=== PATIENT | female | born 1970 | race Caucasian/White ===

== ENCOUNTER 2016-07-07 22:00 | Inpatient (IN) | payer BC, OTHER ==
--- NOTE | ~2016-07-07 | HP ---
History And Physical [place] [id number] [facility] [place]. [address] NAME: SUKHJINDER GONSALVES : 66 STATUS : ADM IN [facility]#: [id number] AGE: 45 ADM/REG DATE : 07/08/16 MR#: [id number] REPORT SERV DATE: 07/08/16 DICTATED BY: EDWARD DIEZ DATE: 07/08/16 REPORT STATUS : Draft TRANSCRIBED BY: MODL DATE: 07/08/16 DATE OF ADMISSION: 07/08/2016 REASON FOR ADMISSION: Complicated diverticulitis. HISTORY: A 45-year-old, relatively healthy, white female, admitted through the ED in the early hours of this morning with her 3rd episode of acute sigmoid diverticulitis in as many months. The patient initially had trouble in April of this year and was treated as an outpatient with oral antibiotics. A CT scan has shown a small focus of sigmoid diverticulitis. She completed outpatient therapy and then had recurrence within a month to where she was admitted for several days to this institution in mid May. At this point, she had worsening imaging characteristics with more extensive diverticulitis of her longer section of the sigmoid colon. She was successfully treated with IV antibiotics and then finished her therapy as outpatient. The patient was doing relatively well until she had acute worsening of her lower abdominal pain yesterday and now CT scan has shown worsening of her sigmoid inflammation with evidence of microperforation with air in the mesentery and a little bit over the liver margin. PAST MEDICAL HISTORY: Include breast hypertrophy and history of syncope. ALLERGIES: ADHESIVE TAPE. SOCIAL HISTORY: She is single and mother. She is a nonsmoker and nondrinker. 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 She is a 4, para 4, abortus 0. PAST SURGICAL HISTORY: She had bilateral breast reduction in fall of 2015. She had a vaginal hysterectomy and bladder sling sometime in the past and then a laparoscopic cholecystectomy in 2009. PHYSICAL EXAMINATION: GENERAL: The patient is alert and conversant, but she is obviously uncomfortable. CARDIOVASCULAR: Regular rate and rhythm. NECK: Supple without adenopathy. HEENT: No scleral icterus. CHEST: Clear bilaterally. BREASTS: Not examined. ABDOMEN: Shows no distention. Decreased bowel sounds. She has generalized tenderness with guarding. She has no hepatosplenomegaly. She appears to have well healed laparoscopic incisions. There may be a small umbilical defect. LABORATORY DATA: WBC 20.3 thousand without left shift. Her H and H is 14.1/41, platelets are 186,000. Potassium is 4.0, BUN 24, creatinine 0.99, glucose 131, bilirubin is 1.6 and it should be noted a month ago, it was 2.9. Liver functions including transaminases within normal limits. Lipase 68. CT imaging impression is that of diverticulosis with sigmoid diverticulitis, pneumoperitoneum likely secondary to perforated sigmoid diverticulitis. History And Physical [address] [place]. [address] NAME: SUKHJINDER GONSALVES : 66 STATUS : ADM IN [facility]#: [id number] AGE: 45 ADM/REG DATE : 07/08/16 MR#: [id number] REPORT SERV DATE: 07/08/16 DICTATED BY: EDWARD DIEZ DATE: 07/08/16 REPORT STATUS : Draft TRANSCRIBED BY: MARK DATE: 07/08/16 IMPRESSION: Complicated acute and recurrent sigmoid diverticulitis with microperforation and evidence of pneumoperitoneum. PLAN: The patient is certainly in a somewhat concerning situation in terms of whether she would need continued medical management versus surgical management. At this point, given her adequate vital signs, I will give her an additional 24 hours of IV fluids, IV antibiotics, and bowel rest to see if she has any effect. If she has no improvement in the next 18-24 hours or worsens, she will need diagnostic laparoscopy with peritoneal lavage and washouts and/or elective sigmoid resection plus-minus colostomy. I have taken great pains to explain to the patient her somewhat marginal situation in terms of medical versus surgical management, but given her age and health, I think it is not unreasonable to give her a therapeutic trial of antibiotics and see if we can avoid urgent or aggressive surgical intervention. She and her family understand the reason for this and we will proceed in that fashion. RAI/MARK Edward Diez M.D. / [id number] CC: Laurita Frederick M.D.
--- NOTE | ~2016-07-07 | DS ---
Discharge Summary [facility] [address] [place]. [address] NAME: SUKHJINDER GONSALVES : 66 STATUS : DIS IN PAT#: [id number] AGE: 45 ADM/REG DATE : 07/08/16 MR#: [id number] REPORT SERV DATE: 07/26/16 DICTATED BY: EDWARD DIEZ DATE: 07/25/16 REPORT STATUS : Draft TRANSCRIBED BY: MARK DATE: 07/25/16 Data Collection from hospitalization DISCHARGE DIAGNOSES: 1. Perforated sigmoid diverticulitis. 2. Gastroesophageal reflux disease. 3. History of breast hypertrophy. 4. History of syncope. CONSULTATIONS: None. PROCEDURES PERFORMED: 1. Diagnostic laparoscopy with laparoscopic peritoneal lavage on 07/09/2016. 2. CT scan of the abdomen and pelvis without contrast on 07/08/2016. MEDICATIONS: Biotin capsules 5 mg daily, Zyrtec 10 mg at bedtime, vitamin B12 1000 mcg daily, papaya enzyme as instructed, [place] 5/325 one tablet every four hours as needed for pain, Levaquin 750 mg daily, Mobic 15 mg at bedtime, Flagyl 500 mg every eight hours, multivitamins one tablet daily, and Zofran 4 mg every six hours as needed. CONDITION AT DISCHARGE: Stable. DISPOSITION: The patient was discharged home on a soft diet with activities as instructed. She would follow up with me on 07/25/2016. HOSPITAL COURSE: This is a 45-year-old female who presented to the emergency department in the peanut shaker hours of the morning of admission with her third episode of acute sigmoid diverticulitis in as many months. She initially had trouble in April of this year and was treated as an outpatient with oral antibiotics. A CT scan had shown a small focus of sigmoid diverticulitis. She completed outpatient therapy and then had recurrence within a month and was admitted for several days here in mid May. At this point, she developed worsening imaging characteristics with more extensive diverticulitis of a longer section of the sigmoid colon. She was successfully treated with IV antibiotics and then finished her therapy as an outpatient. She was doing relatively well until she developed acute worsening of her lower abdominal pain on the day prior to this admission. She presented and a CT scan had shown worsening of her sigmoid inflammation with evidence of microperforation with air in the mesentery and a slifer of air over the right liver margin. She was felt to have complicated acute and recurrent sigmoid diverticulitis with microperforation and evidence of pneumoperitoneum. Treatment options were discussed and it was elected to proceed with surgical intervention. She was admitted to the hospital at this time for further evaluation and treatment. Upon admission, plans are being made to proceed with surgical intervention. The following day, she was taken to the operating room where she underwent the above-mentioned procedure. She tolerated this well, and there were no complications. On postop day #1, white count had decreased to 21.2. Total bilirubin was 1.4. Urine output was adequate. She had moderate NG tube output. Her lungs were clear. Her incisions looked okay. She was allowed to have ice chips and sips of water. Antibiotics were continued. On 07/11/2016, her temperatures Discharge Summary [place] [id number] [facility] [place]. [address] NAME: SUKHJINDER GONSALVES : 66 STATUS : DIS IN PAT#: [id number] AGE: 45 ADM/REG DATE : 07/08/16 MR#: [id number] REPORT SERV DATE: 07/26/16 DICTATED BY: EDWARD DIEZ DATE: 07/25/16 REPORT STATUS : Draft TRANSCRIBED BY: MARK DATE: 07/25/16 and pulse were within normal limits. She did have some increased pain the previous evening, but this was improving. She was less flushed. Her abdomen was less distended and tender. Her incisions looked okay. White blood cell count was 13.2. Total bilirubin and liver function tests were within normal limits. On 07/12/2016, her white count had decreased to 12. She did have some retching. Liver function tests were within normal limits. Her incisions looked okay. IV antibiotics were continued. The next day, she developed some frequent loose stools. She had no further nausea or vomiting. KUB had revealed ileus versus free air. C and S of the peritoneal fluid showed no growth. On 07/14/2016, she had some nausea and loose stools. There was no change in her abdominal pain. Over the next couple of days, discharge planning was performed. She was up sitting in a chair. She continued to do well. Antibiotics were continued. On 07/16/2016, she remained afebrile. She was tolerating full liquids. She still had some loose stools, but less voluminous. White count was 12.5. Her diet was advanced. Discharge instructions were given. Due to her improved and stable condition, she was discharged home with the above-stated instructions. Information collected by: Jennifer Patel I submit the above information as my discharge summary. TANO/MARK Edward Diez M.D. / [id number] CC: Laurita Frederick M.D.
--- NOTE | ~2016-07-07 | OP ---
Record Of Operation [facility] [address] [place]. [address] NAME: SUKHJINDER GONSALVES : 66 STATUS : ADM IN PAT#: [id number] AGE: 45 ADM/REG DATE : 07/08/16 MR#: [id number] REPORT SERV DATE: 07/10/16 DICTATED BY: EDWARD DIEZ DATE: 07/10/16 REPORT STATUS : Draft TRANSCRIBED BY: MODL DATE: 07/10/16 DATE OF PROCEDURE: 07/09/2016 PREOPERATIVE DIAGNOSIS: Perforated sigmoid diverticulitis with purulent peritonitis (Hinchey grade 3). POSTOPERATIVE DIAGNOSIS: Perforated sigmoid diverticulitis with purulent peritonitis (Hinchey grade 3). PROCEDURE: Diagnostic laparoscopy with laparoscopic peritoneal lavage. DESCRIPTION OF OPERATIVE PROCEDURE: The patient was brought to the operating suite, placed in supine position, underwent satisfactory general endotracheal anesthesia without incident. The skin of the abdomen was scrubbed, prepped, and draped in usual sterile fashion. 0.5% Marcaine with epinephrine was utilized as supplemental local anesthesia at all intended trocar sites. Initially, an infraumbilical incision was performed dissecting through the skin and subcutaneous tissue of the umbilical fascia. This was grasped with a Cheo clamp and elevated and a disposable Veress insufflation needle was inserted through the umbilical fascia into the peritoneal cavity. Intraperitoneal tip location ascertained using the saline hanging drop method. CO2 was insufflated for pressures of 15 mmHg throughout the case. After adequate insufflation pressure was achieved, Veress needle was removed, disposable bladed shielded 11 mm trocar placed through the umbilical fascia following which a rigid forward-viewing 10 mm laparoscope was inserted. Visualization of the intraabdominal parietes revealed no evidence of injury from initial insufflation or puncture. Evaluation of intraperitoneal cavity revealed a purulent peritonitis from the perforated sigmoid diverticulitis consistent with a Hinchey grade 3 condition. Two additional trocars were placed, a 5 mm one in the infraumbilical midline detention between the pubic bone and then a 10/11 mm trocar through the suprapubic midline. They were placed under direct visualization. Copious irrigation with normal saline (15 L) was performed until clear of all the purulent material freeing up the small bowel and loops of small bowel to make sure there are no interloop abscesses. Evaluation of the sigmoid colon revealed sigmoid diverticulitis. I could not see any feculent discharge or free air. After copious irrigation, and evaluation, aspiration of all of the irrigating fluid was performed and then laparoscopy was terminated. Trocars removed. CO2 was allowed to egress from the peritoneal cavity. The umbilicus was closed with [id number] suture of 0 Vicryl, subcutaneous tissue closed at all sites with interrupted 4-0 Vicryl, running subcuticular stitch of 4-0 Vicryl for the skin. Dermabond skin adhesive placed. The patient tolerated the procedure well and was returned to PACU in stable condition. At Record Of Operation [address] [address] NAME: SUKHJINDER GONSALVES : 66 STATUS : ADM IN [facility]#: [id number] AGE: 45 ADM/REG DATE : 07/08/16 MR#: [id number] REPORT SERV DATE: 07/10/16 DICTATED BY: EDWARD DIEZ DATE: 07/10/16 REPORT STATUS : Draft TRANSCRIBED BY: MARK DATE: 07/10/16 termination of procedure, sponge, needle, lap, and instrument counts were correct x3. RAI/MARK Edward Diez M.D. / [id number] CC: Laurita Frederick M.D.
[~2016-07-07 22:00] MED LIST: ALEVE220 MG PO; AT25 PO; CLARIT10 PO; FLAG500TAB PO; HARD NAILS PO; K500 PO; LEVAQUIN750 MG PO; MOBIC15 MG PO; MULTIVIT/MIN PO; NORCO1 TA1 PO; OTC VITAMIN B-12 PO; PAPAYA ENZY1 PO; ST. JOHN'S300 MG PO; ULTRAM50 PO; ZYRTEC ALLGY10 MG PO; [UNRECOGNIZED DRUG - OTHER] PO
[2016-07-07 23:55] LABS: ASCORBIC ACID (UR NOT ORDER) NEG (NEG); BILIRUBIN, URINE NEGATIVE (NEG); ER URINALYSIS TAT 0 Hrs 00 Mins; KETONE, URINE NEGATIVE (NEG); LEUKOCYTE ESTERASE(NOT OR NEG (NEG); NITRITE (URINE) NEG (NEG); WBC (NOT ORDERED) (RFLEX) 1 (0-5)
[2016-07-07 23:57] LABS: BASOPHILS 0.1 %; BASOPHILS ABSOLUTE 0.02 10/3/uL (0.0-0.16); EOSINOPHILS 0.1 %; EOSINOPHILS ABSOLUTE 0.02 10/3/uL (0.0-0.53); ER CBC TAT 0 Hrs 13 Mins; HEMOGLOBIN 14.1 g/dL (12.0-16.0); IMMATURE GRANULOCYTES 0.4 %; IMMATURE GRANULOCYTES ABSOLUTE 0.08 10/3/uL (0.0-0.11); LYMPHOCYTES ABSOLUTE 1.43 10/3/uL (0.67-4.30); MANUAL DIFF NO %; MEAN CORPUS HGB CONC 34.4 g/dL (32.0-36.0); MEAN CORPUSCULAR HEMOGLOB 29.6 pg (26.0-34.0); MEAN CORPUSCULAR VOLUME 86.1 fL (80-100); MEAN PLATELET VOLUME 9.8 fL (9.2-13.0); MONOCYTES 7.6 %; MONOCYTES ABSOLUTE 1.55 10/3/uL (0.21-1.20); NEUTROPHILS 84.8 %; NEUTROPHILS ABSOLUTE 17.24 10/3/uL (2.02-8.40); PLATELET COUNT 186 10/3/uL (150-400); RBC DISTRIBUTION WIDTH 13.3 % (12.0-16.0); RED CELL COUNT 4.76 10/6/uL (4.0-5.6); WHITE BLOOD CELLS 20.3 10/3/uL (4.5-10.5)
[2016-07-08 00:14] LABS: CALCIUM, SERUM 8.5 MG/DL (8.5-10.4); CHLORIDE, SERUM 101 MMOL/L (96-112); CO2 (CARBON DIOXIDE) 27 MMOL/L (24-34); CREATININE 0.99 MG/DL (0.55-1.02); GFR AFRICAN AMERICAN 79 ML/MIN (>=60); GFR NON AFRICAN AMERICAN 68 ML/MIN (>=60); SGOT(AST) 24 U/L (5-40); SGPT(ALT) 46 U/L (5-65); SODIUM, SERUM 137 MMOL/L (135-148); TOTAL PROTEIN 7.6 G/DL (6.0-8.5)
[2016-07-08 00:15] LABS: A/G RATIO 1.2 (0.7-1.9); ALBUMIN 4.1 G/DL (3.5-5.0); BUN (BLOOD UREA NITROGEN) 24 MG/DL (6-23); GLOBULIN 3.5 G/DL (2.5-4.1); GLUCOSE, SERUM 131 MG/DL (60-99); TOTAL BILIRUBIN 1.6 MG/DL (0-1.2)
[2016-07-08 00:16] LABS: ALKALINE PHOSPHATASE 67 U/L (45-117)
[2016-07-08] MEDS ORDERED: PAPAYA ENZY1 PO (03:51)
[2016-07-08] MEDS ORDERED: MULTIVITAMI1 PO (03:53)
[2016-07-08] MEDS ORDERED: MOBIC15 MG PO (03:53)
[2016-07-08] MEDS ORDERED: ZYRTEC ALLGY10 MG PO (03:54)
[2016-07-08] MEDS ORDERED: CYANO1000T PO (03:55)
[2016-07-08] MEDS ORDERED: NORCO1 TA1 PO (03:55)
[2016-07-08] MEDS ORDERED: BIOTIN5 MG PO (03:57)
[2016-07-09 06:38] LABS: BASOPHILS 0.2 %; BASOPHILS ABSOLUTE 0.04 10/3/uL (0.0-0.16); EOSINOPHILS 0.1 %; EOSINOPHILS ABSOLUTE 0.03 10/3/uL (0.0-0.53); HEMOGLOBIN 12.6 g/dL (12.0-16.0); IMMATURE GRANULOCYTES 0.4 %; IMMATURE GRANULOCYTES ABSOLUTE 0.08 10/3/uL (0.0-0.11); LYMPHOCYTES 9.6 %; LYMPHOCYTES ABSOLUTE 2.07 10/3/uL (0.67-4.30); MEAN CORPUS HGB CONC 34.1 g/dL (32.0-36.0); MEAN CORPUSCULAR HEMOGLOB 30.1 pg (26.0-34.0); MEAN CORPUSCULAR VOLUME 88.5 fL (80-100); MEAN PLATELET VOLUME 9.5 fL (9.2-13.0); MONOCYTES 8.8 %; NEUTROPHILS 80.9 %; NEUTROPHILS ABSOLUTE 17.52 10/3/uL (2.02-8.40); PLATELET COUNT 180 10/3/uL (150-400); RBC DISTRIBUTION WIDTH 13.9 % (12.0-16.0); RED CELL COUNT 4.18 10/6/uL (4.0-5.6); WHITE BLOOD CELLS 21.6 10/3/uL (4.5-10.5)
[2016-07-09 06:41] LABS: MANUAL DIFF NO %
[2016-07-09 06:50] LABS: ALKALINE PHOSPHATASE 66 U/L (45-117); CALCIUM, SERUM 8.3 MG/DL (8.5-10.4); CHLORIDE, SERUM 101 MMOL/L (96-112); CO2 (CARBON DIOXIDE) 27 MMOL/L (24-34); CREATININE 0.84 MG/DL (0.55-1.02); GFR AFRICAN AMERICAN 96 ML/MIN (>=60); GFR NON AFRICAN AMERICAN 83 ML/MIN (>=60); POTASSIUM, SERUM 3.8 MMOL/L (3.5-5.3); SGOT(AST) 13 U/L (5-40); SGPT(ALT) 25 U/L (5-65); SODIUM, SERUM 138 MMOL/L (135-148); TOTAL PROTEIN 7.1 G/DL (6.0-8.5)
[2016-07-09 06:52] LABS: A/G RATIO 0.8 (0.7-1.9); ALBUMIN 3.2 G/DL (3.5-5.0); BUN (BLOOD UREA NITROGEN) 11 MG/DL (6-23); GLOBULIN 3.9 G/DL (2.5-4.1); GLUCOSE, SERUM 90 MG/DL (60-99); TOTAL BILIRUBIN 4.3 MG/DL (0-1.2)
[2016-07-10 07:00] LABS: BASOPHILS 0.1 %; BASOPHILS ABSOLUTE 0.02 10/3/uL (0.0-0.16); EOSINOPHILS 0 %; HEMATOCRIT 33.7 % (36.0-48.0); HEMOGLOBIN 11.5 g/dL (12.0-16.0); IMMATURE GRANULOCYTES 0.3 %; IMMATURE GRANULOCYTES ABSOLUTE 0.07 10/3/uL (0.0-0.11); LYMPHOCYTES 4.7 %; MEAN CORPUS HGB CONC 34.1 g/dL (32.0-36.0); MEAN CORPUSCULAR HEMOGLOB 29.4 pg (26.0-34.0); MEAN CORPUSCULAR VOLUME 86.2 fL (80-100); MEAN PLATELET VOLUME 9.4 fL (9.2-13.0); MONOCYTES 4.8 %; MONOCYTES ABSOLUTE 1.01 10/3/uL (0.21-1.20); NEUTROPHILS 90.1 %; NEUTROPHILS ABSOLUTE 19.11 10/3/uL (2.02-8.40); PLATELET COUNT 201 10/3/uL (150-400); RBC DISTRIBUTION WIDTH 13.7 % (12.0-16.0); RED CELL COUNT 3.91 10/6/uL (4.0-5.6); WHITE BLOOD CELLS 21.2 10/3/uL (4.5-10.5)
[2016-07-10 07:01] LABS: MANUAL DIFF NO %
[2016-07-10 07:16] LABS: A/G RATIO 0.6 (0.7-1.9); ALBUMIN 2.6 G/DL (3.5-5.0); ALKALINE PHOSPHATASE 71 U/L (45-117); BUN (BLOOD UREA NITROGEN) 10 MG/DL (6-23); CALCIUM, SERUM 7.9 MG/DL (8.5-10.4); CHLORIDE, SERUM 105 MMOL/L (96-112); CO2 (CARBON DIOXIDE) 28 MMOL/L (24-34); CREATININE 0.75 MG/DL (0.55-1.02); GFR AFRICAN AMERICAN 110 ML/MIN (>=60); GFR NON AFRICAN AMERICAN 95 ML/MIN (>=60); GLOBULIN 4.2 G/DL (2.5-4.1); GLUCOSE, SERUM 183 MG/DL (60-99); POTASSIUM, SERUM 3.9 MMOL/L (3.5-5.3); SGOT(AST) 7 U/L (5-40); SGPT(ALT) 20 U/L (5-65); SODIUM, SERUM 140 MMOL/L (135-148); TOTAL BILIRUBIN 1.4 MG/DL (0-1.2); TOTAL PROTEIN 6.8 G/DL (6.0-8.5)
[2016-07-11 04:15] LABS: BASOPHILS 0.2 %; BASOPHILS ABSOLUTE 0.02 10/3/uL (0.0-0.16); EOSINOPHILS 0.2 %; EOSINOPHILS ABSOLUTE 0.03 10/3/uL (0.0-0.53); HEMATOCRIT 32.1 % (36.0-48.0); HEMOGLOBIN 10.7 g/dL (12.0-16.0); IMMATURE GRANULOCYTES 0.5 %; IMMATURE GRANULOCYTES ABSOLUTE 0.06 10/3/uL (0.0-0.11); LYMPHOCYTES 17.6 %; LYMPHOCYTES ABSOLUTE 2.32 10/3/uL (0.67-4.30); MANUAL DIFF NO %; MEAN CORPUS HGB CONC 33.3 g/dL (32.0-36.0); MEAN CORPUSCULAR HEMOGLOB 29.7 pg (26.0-34.0); MEAN CORPUSCULAR VOLUME 89.2 fL (80-100); MEAN PLATELET VOLUME 9.3 fL (9.2-13.0); MONOCYTES 8.4 %; NEUTROPHILS 73.1 %; NEUTROPHILS ABSOLUTE 9.63 10/3/uL (2.02-8.40); PLATELET COUNT 222 10/3/uL (150-400); RBC DISTRIBUTION WIDTH 13.9 % (12.0-16.0); WHITE BLOOD CELLS 13.2 10/3/uL (4.5-10.5)
[2016-07-11 04:33] LABS: A/G RATIO 0.7 (0.7-1.9); ALBUMIN 2.7 G/DL (3.5-5.0); CALCIUM, SERUM 7.8 MG/DL (8.5-10.4); CHLORIDE, SERUM 107 MMOL/L (96-112); CO2 (CARBON DIOXIDE) 31 MMOL/L (24-34); CREATININE 0.81 MG/DL (0.55-1.02); GFR AFRICAN AMERICAN 100 ML/MIN (>=60); GFR NON AFRICAN AMERICAN 86 ML/MIN (>=60); GLOBULIN 3.9 G/DL (2.5-4.1); POTASSIUM, SERUM 3.6 MMOL/L (3.5-5.3); SGOT(AST) 6 U/L (5-40); SGPT(ALT) 14 U/L (5-65); SODIUM, SERUM 143 MMOL/L (135-148); TOTAL PROTEIN 6.6 G/DL (6.0-8.5)
[2016-07-11 04:49] LABS: ALKALINE PHOSPHATASE 59 U/L (45-117); BUN (BLOOD UREA NITROGEN) 14 MG/DL (6-23); GLUCOSE, SERUM 114 MG/DL (60-99); TOTAL BILIRUBIN 0.7 MG/DL (0-1.2)
[2016-07-12 06:55] LABS: BASOPHILS 0.3 %; BASOPHILS ABSOLUTE 0.03 10/3/uL (0.0-0.16); EOSINOPHILS 0.8 %; HEMATOCRIT 36.4 % (36.0-48.0); HEMOGLOBIN 12.4 g/dL (12.0-16.0); IMMATURE GRANULOCYTES 0.8 %; IMMATURE GRANULOCYTES ABSOLUTE 0.09 10/3/uL (0.0-0.11); LYMPHOCYTES 16.2 %; LYMPHOCYTES ABSOLUTE 1.94 10/3/uL (0.67-4.30); MEAN CORPUS HGB CONC 34.1 g/dL (32.0-36.0); MEAN CORPUSCULAR HEMOGLOB 29.8 pg (26.0-34.0); MEAN CORPUSCULAR VOLUME 87.5 fL (80-100); MEAN PLATELET VOLUME 8.4 fL (9.2-13.0); MONOCYTES 14.8 %; MONOCYTES ABSOLUTE 1.77 10/3/uL (0.21-1.20); NEUTROPHILS 67.1 %; NEUTROPHILS ABSOLUTE 8.03 10/3/uL (2.02-8.40); PLATELET COUNT 239 10/3/uL (150-400); RBC DISTRIBUTION WIDTH 13.6 % (12.0-16.0); RED CELL COUNT 4.16 10/6/uL (4.0-5.6)
[2016-07-12 06:56] LABS: MANUAL DIFF NO %
[2016-07-12 07:20] LABS: A/G RATIO 0.7 (0.7-1.9); ALBUMIN 2.7 G/DL (3.5-5.0); ALKALINE PHOSPHATASE 88 U/L (45-117); BUN (BLOOD UREA NITROGEN) 8 MG/DL (6-23); CALCIUM, SERUM 7.7 MG/DL (8.5-10.4); CHLORIDE, SERUM 103 MMOL/L (96-112); CO2 (CARBON DIOXIDE) 28 MMOL/L (24-34); CREATININE 0.77 MG/DL (0.55-1.02); GFR AFRICAN AMERICAN 107 ML/MIN (>=60); GFR NON AFRICAN AMERICAN 92 ML/MIN (>=60); GLOBULIN 4.1 G/DL (2.5-4.1); GLUCOSE, SERUM 126 MG/DL (60-99); POTASSIUM, SERUM 3.6 MMOL/L (3.5-5.3); SGOT(AST) 28 U/L (5-40); SGPT(ALT) 31 U/L (5-65); SODIUM, SERUM 140 MMOL/L (135-148); TOTAL BILIRUBIN 1.4 MG/DL (0-1.2); TOTAL PROTEIN 6.8 G/DL (6.0-8.5)
[2016-07-13 07:05] LABS: BASOPHILS 0.3 %; BASOPHILS ABSOLUTE 0.05 10/3/uL (0.0-0.16); EOSINOPHILS 0.5 %; EOSINOPHILS ABSOLUTE 0.08 10/3/uL (0.0-0.53); HEMATOCRIT 36.5 % (36.0-48.0); HEMOGLOBIN 12.4 g/dL (12.0-16.0); IMMATURE GRANULOCYTES 1.2 %; IMMATURE GRANULOCYTES ABSOLUTE 0.18 10/3/uL (0.0-0.11); LYMPHOCYTES 14.4 %; LYMPHOCYTES ABSOLUTE 2.14 10/3/uL (0.67-4.30); MEAN CORPUSCULAR HEMOGLOB 28.9 pg (26.0-34.0); MEAN CORPUSCULAR VOLUME 85.1 fL (80-100); MONOCYTES 12.3 %; MONOCYTES ABSOLUTE 1.83 10/3/uL (0.21-1.20); NEUTROPHILS 71.3 %; NEUTROPHILS ABSOLUTE 10.63 10/3/uL (2.02-8.40); PLATELET COUNT 284 10/3/uL (150-400); RBC DISTRIBUTION WIDTH 13.7 % (12.0-16.0); RED CELL COUNT 4.29 10/6/uL (4.0-5.6); WHITE BLOOD CELLS 14.9 10/3/uL (4.5-10.5)
[2016-07-13 07:06] LABS: MANUAL DIFF NO %
[2016-07-13 07:17] LABS: BUN (BLOOD UREA NITROGEN) 6 MG/DL (6-23); CALCIUM, SERUM 8.1 MG/DL (8.5-10.4); CHLORIDE, SERUM 104 MMOL/L (96-112); CO2 (CARBON DIOXIDE) 29 MMOL/L (24-34); CREATININE 0.81 MG/DL (0.55-1.02); GFR AFRICAN AMERICAN 100 ML/MIN (>=60); GFR NON AFRICAN AMERICAN 86 ML/MIN (>=60); GLUCOSE, SERUM 131 MG/DL (60-99); POTASSIUM, SERUM 3.3 MMOL/L (3.5-5.3); SODIUM, SERUM 142 MMOL/L (135-148)
[2016-07-14 06:15] LABS: BASOPHILS 0.3 %; BASOPHILS ABSOLUTE 0.04 10/3/uL (0.0-0.16); EOSINOPHILS 1.2 %; EOSINOPHILS ABSOLUTE 0.18 10/3/uL (0.0-0.53); HEMATOCRIT 34.2 % (36.0-48.0); HEMOGLOBIN 11.7 g/dL (12.0-16.0); IMMATURE GRANULOCYTES 2.2 %; IMMATURE GRANULOCYTES ABSOLUTE 0.34 10/3/uL (0.0-0.11); LYMPHOCYTES 17.4 %; LYMPHOCYTES ABSOLUTE 2.71 10/3/uL (0.67-4.30); MEAN CORPUS HGB CONC 34.2 g/dL (32.0-36.0); MEAN CORPUSCULAR HEMOGLOB 29.4 pg (26.0-34.0); MEAN CORPUSCULAR VOLUME 85.9 fL (80-100); MEAN PLATELET VOLUME 8.7 fL (9.2-13.0); MONOCYTES 11.7 %; MONOCYTES ABSOLUTE 1.82 10/3/uL (0.21-1.20); NEUTROPHILS 67.2 %; NEUTROPHILS ABSOLUTE 10.46 10/3/uL (2.02-8.40); PLATELET COUNT 276 10/3/uL (150-400); RBC DISTRIBUTION WIDTH 13.7 % (12.0-16.0); RED CELL COUNT 3.98 10/6/uL (4.0-5.6); WHITE BLOOD CELLS 15.6 10/3/uL (4.5-10.5)
[2016-07-14 06:17] LABS: MANUAL DIFF NO %
[2016-07-14 06:32] LABS: BUN (BLOOD UREA NITROGEN) 9 MG/DL (6-23); CALCIUM, SERUM 8.5 MG/DL (8.5-10.4); CHLORIDE, SERUM 105 MMOL/L (96-112); CO2 (CARBON DIOXIDE) 29 MMOL/L (24-34); CREATININE 0.79 MG/DL (0.55-1.02); GFR AFRICAN AMERICAN 103 ML/MIN (>=60); GFR NON AFRICAN AMERICAN 89 ML/MIN (>=60); GLUCOSE, SERUM 106 MG/DL (60-99); POTASSIUM, SERUM 3.4 MMOL/L (3.5-5.3); SODIUM, SERUM 141 MMOL/L (135-148)
[2016-07-15 06:20] LABS: BASOPHILS 0.4 %; BASOPHILS ABSOLUTE 0.05 10/3/uL (0.0-0.16); EOSINOPHILS 1.4 %; HEMATOCRIT 33.8 % (36.0-48.0); HEMOGLOBIN 11.6 g/dL (12.0-16.0); IMMATURE GRANULOCYTES 2.1 %; IMMATURE GRANULOCYTES ABSOLUTE 0.29 10/3/uL (0.0-0.11); LYMPHOCYTES 17.1 %; LYMPHOCYTES ABSOLUTE 2.37 10/3/uL (0.67-4.30); MEAN CORPUS HGB CONC 34.3 g/dL (32.0-36.0); MEAN CORPUSCULAR HEMOGLOB 29.4 pg (26.0-34.0); MEAN CORPUSCULAR VOLUME 85.8 fL (80-100); MEAN PLATELET VOLUME 8.5 fL (9.2-13.0); MONOCYTES 12.2 %; MONOCYTES ABSOLUTE 1.69 10/3/uL (0.21-1.20); NEUTROPHILS 66.8 %; NEUTROPHILS ABSOLUTE 9.24 10/3/uL (2.02-8.40); PLATELET COUNT 286 10/3/uL (150-400); RBC DISTRIBUTION WIDTH 13.8 % (12.0-16.0); RED CELL COUNT 3.94 10/6/uL (4.0-5.6); WHITE BLOOD CELLS 13.8 10/3/uL (4.5-10.5)
[2016-07-15 06:23] LABS: MANUAL DIFF NO %
[2016-07-15 06:33] LABS: BUN (BLOOD UREA NITROGEN) 7 MG/DL (6-23); CALCIUM, SERUM 8.5 MG/DL (8.5-10.4); CHLORIDE, SERUM 105 MMOL/L (96-112); CO2 (CARBON DIOXIDE) 28 MMOL/L (24-34); CREATININE 0.86 MG/DL (0.55-1.02); GFR AFRICAN AMERICAN 93 ML/MIN (>=60); GFR NON AFRICAN AMERICAN 80 ML/MIN (>=60); GLUCOSE, SERUM 123 MG/DL (60-99); POTASSIUM, SERUM 3.7 MMOL/L (3.5-5.3); SODIUM, SERUM 141 MMOL/L (135-148)
[2016-07-16 05:06] LABS: BASOPHILS 0.6 %; BASOPHILS ABSOLUTE 0.07 10/3/uL (0.0-0.16); EOSINOPHILS ABSOLUTE 0.13 10/3/uL (0.0-0.53); HEMATOCRIT 36.4 % (36.0-48.0); HEMOGLOBIN 12.4 g/dL (12.0-16.0); IMMATURE GRANULOCYTES 2.6 %; IMMATURE GRANULOCYTES ABSOLUTE 0.32 10/3/uL (0.0-0.11); LYMPHOCYTES 22.4 %; LYMPHOCYTES ABSOLUTE 2.79 10/3/uL (0.67-4.30); MEAN CORPUS HGB CONC 34.1 g/dL (32.0-36.0); MEAN CORPUSCULAR HEMOGLOB 29.8 pg (26.0-34.0); MEAN CORPUSCULAR VOLUME 87.5 fL (80-100); MEAN PLATELET VOLUME 8.5 fL (9.2-13.0); MONOCYTES 11.5 %; MONOCYTES ABSOLUTE 1.44 10/3/uL (0.21-1.20); NEUTROPHILS 61.9 %; NEUTROPHILS ABSOLUTE 7.72 10/3/uL (2.02-8.40); PLATELET COUNT 300 10/3/uL (150-400); RBC DISTRIBUTION WIDTH 13.6 % (12.0-16.0); RED CELL COUNT 4.16 10/6/uL (4.0-5.6); WHITE BLOOD CELLS 12.5 10/3/uL (4.5-10.5)
[2016-07-16 05:07] LABS: MANUAL DIFF NO %
[2016-07-16 05:19] LABS: BUN (BLOOD UREA NITROGEN) 9 MG/DL (6-23); CALCIUM, SERUM 9.1 MG/DL (8.5-10.4); CHLORIDE, SERUM 103 MMOL/L (96-112); CO2 (CARBON DIOXIDE) 27 MMOL/L (24-34); CREATININE 0.71 MG/DL (0.55-1.02); GFR AFRICAN AMERICAN 118 ML/MIN (>=60); GFR NON AFRICAN AMERICAN 101 ML/MIN (>=60); GLUCOSE, SERUM 105 MG/DL (60-99); POTASSIUM, SERUM 3.7 MMOL/L (3.5-5.3); SODIUM, SERUM 139 MMOL/L (135-148)
[2016-07-16] MEDS ORDERED: FLAG500TAB PO (11:49)
[2016-07-16] MEDS ORDERED: LEVAQUIN750 MG PO (11:50)
[2016-07-16] MEDS ORDERED: ZOFRAN4 PO (11:50)
[2017-01-02] MEDS ORDERED: ZOLOFT25 MG PO (13:23)
[2017-01-02] MEDS ORDERED: ST. JOHN'S300 MG PO (13:24)
[2017-01-02] MEDS ORDERED: [UNRECOGNIZED DRUG - OTHER] OPH (13:25)
[2017-01-02] MEDS ORDERED: NASACORTAQ NAS (13:26)
[2017-01-02] MEDS ORDERED: IBU-200200 MG PO (13:27)
== END 2016-07-16 19:30 | disposition home or self-care (01) | DRG 392 ==
LOC: ER 22:00 → 4EA 07-08 03:56
PROVIDERS: Specialist; Surgery
PROC: 3E1M38X Irrigation of Peritoneal Cavity using Irrigating Substance, Percutaneous Approach, Diagnostic (ICD-10-PCS; principal; 2016-07-08)
DX: K57.20 Diverticulitis of large intestine with perforation and abscess without bleeding (principal); K21.9 Gastro-esophageal reflux disease without esophagitis; K91.3 Postprocedural intestinal obstruction
CPT/HCPCS: 74020; 74176; 80048; 80053; 81001; 82962; 83690; 85025; 87015; 87040; 87070; 87075; 87102; 87116; 87205; 96374; 99285; A9270-GY; C9113; J0330; J0690; J1170; J2250; J2405; J2543; J2550; J2710; J2795; J3010

== ENCOUNTER 2016-07-23 16:43 | Inpatient (IN) | payer BC, OTHER ==
--- NOTE | ~2016-07-23 | OP ---
Record Of Operation [facility] [address] [place]. [address] NAME: SUKHJINDER GONSALVES : 66 STATUS : ADM IN [facility]#: [id number] AGE: 45 ADM/REG DATE : 07/23/16 MR#: [id number] REPORT SERV DATE: 07/29/16 DICTATED BY: EDWARD DIEZ DATE: 07/28/16 REPORT STATUS : Draft TRANSCRIBED BY: MODL DATE: 07/28/16 DATE OF PROCEDURE: 07/23/2016 PREOPERATIVE DIAGNOSIS: Perforated sigmoid diverticulitis with peritonitis. POSTOPERATIVE DIAGNOSIS: Perforated sigmoid diverticulitis with peritonitis. PROCEDURE: Exploratory laparotomy with sigmoid colon resection, creation of Jamal's pouch, and stapling off the distal descending colon without ostomy or anastomosis. SURGEON: Edward Diez M.D. DESCRIPTION OF OPERATIVE PROCEDURE: The patient was brought to the operating suite, placed in supine position, underwent satisfactory general endotracheal anesthesia without incident. The skin of the abdomen was scrubbed, prepped, and draped in usual sterile fashion. 0.5% Marcaine with epinephrine was utilized as supplemental local anesthesia. An infraumbilical midline incision was performed from the umbilicus to the suprapubic area and then eventually extended just above the umbilicus. Dissection through the skin, subcutaneous tissues, and midline fascia was performed. Peritoneal cavity was entered. Cultures were obtained and retractor was placed. There was purulent peritonitis without fecal contamination. There were multiple interloop abscesses freed up from the small bowel mesentery. Eventually, the small bowel was eviscerated and packed off. The sigmoid colon had severe diverticulitis with perforation. Decision was made to proceed with sigmoid colectomy. Accordingly, the descending colon/sigmoid colon junction was determined. A vascular area was created in the mesentery and the sigmoid descending colon junction was transected with a contour stapling device. Mesentery was taken down between free ties of 2-0 Vicryl as well as using the Harmonic Scalpel and then again, resection was performed at the rectosigmoid junction with contour stapling device. The peritoneal cavity was irrigated copiously. At this time, decision was made not to proceed with it cost of colostomy or colorectal anastomosis due to the severe purulent contamination of the peritoneal cavity and the hostile abdomen. This was an attempt to avoid a colostomy and need for repeat surgery down the road. Accordingly, a prospective decision was made to return in 72 hours for a "second look" exploration and possibly reanastomosis. Accordingly, a plastic barrier drape was placed over the bowel, following which a moist operating towel and then a 15-Indonesian Jones drain was left on top of the moist operating Record Of [address] [address] NAME: SUKHJINDER GONSALVES : 66 STATUS : ADM IN PAT#: [id number] AGE: 45 ADM/REG DATE : 07/23/16 MR#: [id number] REPORT SERV DATE: 07/29/16 DICTATED BY: EDWARD DIEZ DATE: 07/28/16 REPORT STATUS : Draft TRANSCRIBED BY: MARK DATE: 07/28/16 towel and placed to suction. Then, Ioban dressing was adhered to the abdominal wall after Mastisol was used to prep the skin and placed under a temporary Vac-Pac suction. The patient tolerated the procedure reasonably well under the contaminated circumstances. Was returned to PACU in stable condition. At the termination of the procedure, sponge, needle, lap, and instrument counts were all correct. ESTIMATED BLOOD LOSS: 50 to 75 mL. RAI/MARK Edward Diez M.D. / [id number] CC: Laurita Frederick M.D.
--- NOTE | ~2016-07-23 | DS ---
Discharge Summary [facility] [address] [facility] [place]. [address] NAME: SUKHJINDER GONSALVES : 66 STATUS : DIS IN PAT#: [id number] AGE: 45 ADM/REG DATE : 07/23/16 MR#: [id number] REPORT SERV DATE: 08/22/16 DICTATED BY: EDWARD DIEZ DATE: 08/21/16 REPORT STATUS : Draft TRANSCRIBED BY: MARK DATE: 08/21/16 Data Collection from hospitalization DISCHARGE DIAGNOSES: 1. Perforated diverticulitis with purulent peritonitis ( III). 2. Breast hypertrophy. 3. Gastroesophageal reflux disease. CONSULTATIONS: None. PROCEDURES PERFORMED: 1. Exploratory laparotomy with sigmoid colon resection, creation of Jamal's pouch, and stapling off the distal descending colon without ostomy or anastomosis, 07/23/2016. 2. "Second-look" perspective exploration with irrigation of peritoneal cavity and colorectal anastomosis (25 mm EEA). 3. Rigid proctoscopy, 07/26/2016. PATHOLOGY: Sigmoid colon resection-acute diverticulitis with rupture and pericolonic abscess, margins viable. Appendix, appendectomy-fibrous obliteration of the appendiceal tip. No appendicitis seen. Sigmoid colon anastomotic rings-benign colonic mucosa with subserosal chronic inflammation, negative for dysplasia or carcinoma. DISCHARGE MEDICATIONS: Biotin 5 mg daily, Zyrtec 10 mg at bedtime, vitamin B12 1000 mcg daily, papaya enzyme as instructed, [place] 5/325 one tablet every four hours as needed, Mobic 15 mg at bedtime, multivitamins one tablet daily, Zofran 4 mg every six hours as needed. CONDITION AT DISCHARGE: Stable. DISPOSITION: The patient was discharged home on a soft, low-fat, low-residue diet with activities as instructed. She would call my office for a followup appointment. HOSPITAL COURSE: This is a 45-year-old female, who presented to the emergency department in the county director welfare hours with her third episode of acute sigmoid diverticulitis in as many months. The patient initially had trouble in April of this year and was treated as an outpatient with oral antibiotics. A CT scan had shown a small focus of sigmoid diverticulitis. She completed outpatient therapy and then had recurrence within a month to where she had been admitted for several days to this institution in mid May. At this point, she had worsening imaging characteristics with more extensive diverticulitis of a longer section of the sigmoid colon. She was successfully treated with IV antibiotics and then finished her therapy as an outpatient. She was doing relatively well until she had acute worsening of her lower abdominal pain and a CT scan had shown worsening of her sigmoid inflammation with evidence of microperforation with air in the mesentery and a sliver of air over the right liver margin. Treatment options were discussed and it was elected to proceed with surgical intervention. She was admitted to the hospital at this time for further evaluation and treatment. Upon admission, she was taken to the operating room, where she underwent the above-mentioned procedure. She tolerated this well and there were no complications. On postop day #1, she Discharge Summary [address] [place]. [address] NAME: SUKHJINDER GONSALVES : 66 STATUS : DIS IN PAT#: [id number] AGE: 45 ADM/REG DATE : 07/23/16 MR#: [id number] REPORT SERV DATE: 08/22/16 DICTATED BY: EDWARD DIEZ DATE: 08/21/16 REPORT STATUS : Draft TRANSCRIBED BY: MARK DATE: 08/21/16 was afebrile. She did have the expected amount of irritation from the NG tube. Wound VAC was in place. A second-look exploration was planned in a couple of days. White blood cell count was 14.8. Plans were being made to proceed with further surgical intervention. She had an episode of emesis, but no coffee-grounds were seen and no hematemesis. NG tube remained in place. Stool studies were going to be performed if she were to develop diarrhea. She was felt to have a postop ileus. We encouraged her to increase her activity. On 07/26/2016, she was taken to the operating room, where she underwent the above-mentioned procedure. She tolerated this well and there were no complications. On 07/27/2016, she had developed tachycardia. White count was 20,000. Her pain was under control when using the TRANSPLANT IMMUNOLOGIST. Her lungs were clear. IV antibiotics, fluids, and pain management continued. Urine output was okay. Her heart rate was in the 90s. On the , the Jaeger catheter was going to be removed. NG tube was going to be clamped. She did have some rhonchi and rales. Her white count was 12.2. Urine output was excellent. On 07/30/2016, she had to have the NG tube reinserted secondary to nausea and vomiting. She had some increased abdominal distention. White count was 13.3. Over the next couple of days, she had some increased NG tube output. We were going to institute TPN therapy. A PICC line was inserted. She was not tolerating NG tube clamping trial. Prevena wound dressing was removed. The incision looked great. On the , she began to tolerate NG-tube clamping. She was ambulatory. She was voiding okay. She remained on TPN therapy. On the , the NG tube was removed. Her abdomen was soft, nondistended, and nontender. Her white count continued to decrease. All of her IV fluids were discontinued, except for TPN. We were encouraging oral pain medications. She began to tolerate regular food. She had semiformed bowel movement. Urine output remained excellent. TPN was being tapered. Discharge planning was performed. On 08/09/2016, she was voiding well. She had no nausea or vomiting. She was tolerating a regular diet. She was having solid bowel movements. Discharge instructions were given. Due to her improved and stable condition, she was discharged home with the above-stated instructions. Information collected by: Jennifer Patel I submit the above information as my discharge summary. TANO/MARK Edward Diez M.D. / [id number] CC: Laurita Frederick M.D.
--- NOTE | ~2016-07-23 | OP ---
Record Of Operation [facility] [address] [place]. [address] NAME: SUKHJINDER GONSALVES : 66 STATUS : ADM IN PAT#: [id number] AGE: 45 ADM/REG DATE : 07/23/16 MR#: [id number] REPORT SERV DATE: 07/26/16 DICTATED BY: EDWARD DIEZ DATE: 07/26/16 REPORT STATUS : Draft TRANSCRIBED BY: MODL DATE: 07/26/16 DATE OF PROCEDURE: 07/23/2016 PREOPERATIVE DIAGNOSES: Status post emergent exploratory laparotomy for perforated sigmoid diverticulitis, with sigmoid colon resection, without reanastomosis, and temporary abdominal wall closure with wound VAC. POSTOPERATIVE DIAGNOSES: Status post emergent exploratory laparotomy for perforated sigmoid diverticulitis, with sigmoid colon resection, without reanastomosis, and temporary abdominal wall closure with wound VAC. PROCEDURE: 1. "Second look" perspective exploration, with irrigation of peritoneal cavity, and colorectal anastomosis (25 mm EEA). 2. Rigid proctoscopy. SURGEON: Edward Diez M.D. DESCRIPTION OF OPERATIVE PROCEDURE: The patient was brought to operating suite, placed supine position. She is three days, status post exploratory laparotomy for perforated sigmoid diverticulitis, with purulent peritonitis, and multiple small bowel interloop abscess. At the time of the previous procedure 72 hours ago, she underwent irrigation, resection of the sigmoid colon, with stapling off the proximal and distal ends, and leaving the Hidalgo's pouch. Decision was made at that time, to prospectively returned today for a "second look" exploration to re-establish bowel continuity, if the peritoneal cavity was not too hostile. The patient was placed on the operating table in supine position. The lower extremities were elevated and padded with Monty stirrups. Initially, the rectum and anorectum were disimpacted of feculent material digitally by me. Then, the skin of the abdomen was scrubbed, prepped, and draped in usual sterile fashion. Previous 15-Rw[place] Jones drain had been removed and then the operating towel and plastic nonadherent drape was removed the peritoneal cavity. Retractor was placed. The abdominal cavity was irrigated copiously. There was no further interloop abscesses, or feculent material, or purulent peritonitis. Some small bowel loops were freed up from adhesions from previous interloop abscesses, but overall copious irrigation showed no ongoing active infection or abscesses. The patient was placed in Trendelenburg position. The small bowel was packed cephalad with moist lap pads. The descending colon which had been previously sealed was identified. There was adequate length to the rectum. Staple line was removed from the descending colon and a pursestring suture of 2-0 Prolene was placed in the open end in a baseball fashion. Then, this portion the colon was dilated enough to receive the anvil of the 25 mm EEA stapler. Then, the Record Of Operation [facility] [address] [facility] [place]. [address] NAME: SUKHJINDER GONSALVES : 66 STATUS : ADM IN PAT#: [id number] AGE: 45 ADM/REG DATE : 07/23/16 MR#: [id number] REPORT SERV DATE: 07/26/16 DICTATED BY: EDWARD DIEZ DATE: 07/26/16 REPORT STATUS : Draft TRANSCRIBED BY: MODIsa DATE: 07/26/16 suture was tied around the spindle of the anvil. Transanal dilatation was next performed with disimpaction of some further fecal material to where the remaining portion of the 25 mm EEA stapler could be inserted transanally, it was impacted into the anterior rectal wall, but not through the previous Jamal pouch staple line, which had a lot of fat and friability to it. The piercing point was engaged under direct visualization. The device was very articulated and oriented in correct fashion with the mesentery, the device was closed to appropriate tension, fired, and removed revealing two intact anastomotic rings. Saline was instilled into the pelvis and then transanal rigid proctoscopy was performed with insufflation of air across the anastomosis, showing no bubbling, signifying an airtight anastomosis. Then again copious irrigation was performed. Aspiration of fluid was performed and hemostasis was assured. The lap packs were removed. The bowel was placed back in appropriate position in the peritoneal cavity with omentum on top of this. The midline was closed with multiple interrupted [id number] sutures of #1 Vicryl. The subcutaneous tissues irrigated and closed in a single layer of interrupted 3-0 Vicryl stainless steel kala for the skin. Then, Prevena wound VAC adherent dressing applied and attached to -125 mm of suction. 15-Rwand[place] Jones drain had been placed into the pelvis and brought out through a stab wound in the suprapubic skin and sutured skin with 3-0 Vicryl. The intraperitoneal portion of the drain was placed around the anastomosis. The patient tolerated the procedure well. She was returned to PACU in stable condition. At the termination of the procedure, sponge, needle, lap, and instrument counts were correct x3. ESTIMATED BLOOD LOSS: 50 mL. RAI/MARK Edward Diez M.D. / [id number] CC: Laurita Frederick M.D.
[~2016-07-23 16:43] MED LIST changes: +BIOTIN5 MG PO; +CYANO1000T PO; +MULTIVITAMI1 PO; +ZOFRAN4 PO
[2016-07-24 05:03] LABS: HEMATOCRIT 37.4 % (36.0-48.0); HEMOGLOBIN 12.7 g/dL (12.0-16.0); MANUAL DIFF YES %; MEAN CORPUSCULAR HEMOGLOB 30.2 pg (26.0-34.0); MEAN PLATELET VOLUME 9.2 fL (9.2-13.0); PLATELET COUNT 380 10/3/uL (150-400); RBC DISTRIBUTION WIDTH 13.9 % (12.0-16.0); WHITE BLOOD CELLS 23.4 10/3/uL (4.5-10.5)
[2016-07-24 05:31] LABS: A/G RATIO 0.7 (0.7-1.9); ALBUMIN 2.7 G/DL (3.5-5.0); ALKALINE PHOSPHATASE 103 U/L (45-117); BUN (BLOOD UREA NITROGEN) 3 MG/DL (6-23); CALCIUM, SERUM 7.9 MG/DL (8.5-10.4); CHLORIDE, SERUM 102 MMOL/L (96-112); CO2 (CARBON DIOXIDE) 25 MMOL/L (24-34); CREATININE 0.73 MG/DL (0.55-1.02); GFR AFRICAN AMERICAN 114 ML/MIN (>=60); GFR NON AFRICAN AMERICAN 98 ML/MIN (>=60); GLUCOSE, SERUM 216 MG/DL (60-99); POTASSIUM, SERUM 4.5 MMOL/L (3.5-5.3); SGOT(AST) 22 U/L (5-40); SGPT(ALT) 22 U/L (5-65); SODIUM, SERUM 137 MMOL/L (135-148); TOTAL PROTEIN 6.7 G/DL (6.0-8.5)
[2016-07-24 05:38] LABS: BAND NEUTROPHILS 15 %; IMMATURE GRANS ABSOLUTE (CALC) 0.23 10/3/uL (0.0-0.11); LYMPHOCYTES 3 %; METAMYELOCYTES 1 %; MONOCYTES 9 %; MONOCYTES ABSOLUTE (CALC) 2.11 10/3/uL (0.21-1.20); NEUTROPHILS ABSOLUTE (CALC) 20.36 10/3/uL (2.02-8.40); PLATELET ESTIMATE ADQ (ADEQUATE); RBC MORPHOLOGY NORM (NORMAL); SEGMENTED NEUTROPHIL (0) 72 %; TOTAL NUCLEATED CELLS 100
[2016-07-25 06:21] LABS: BASOPHILS 0.1 %; BASOPHILS ABSOLUTE 0.02 10/3/uL (0.0-0.16); EOSINOPHILS 0.4 %; EOSINOPHILS ABSOLUTE 0.06 10/3/uL (0.0-0.53); HEMOGLOBIN 10.5 g/dL (12.0-16.0); IMMATURE GRANULOCYTES 0.4 %; IMMATURE GRANULOCYTES ABSOLUTE 0.06 10/3/uL (0.0-0.11); LYMPHOCYTES 14.2 %; LYMPHOCYTES ABSOLUTE 2.28 10/3/uL (0.67-4.30); MEAN CORPUS HGB CONC 33.2 g/dL (32.0-36.0); MEAN CORPUSCULAR HEMOGLOB 30.3 pg (26.0-34.0); MEAN CORPUSCULAR VOLUME 91.1 fL (80-100); MEAN PLATELET VOLUME 8.9 fL (9.2-13.0); MONOCYTES 11.8 %; NEUTROPHILS 73.1 %; NEUTROPHILS ABSOLUTE 11.75 10/3/uL (2.02-8.40); PLATELET COUNT 383 10/3/uL (150-400); RBC DISTRIBUTION WIDTH 14.2 % (12.0-16.0); RED CELL COUNT 3.47 10/6/uL (4.0-5.6); WHITE BLOOD CELLS 16.1 10/3/uL (4.5-10.5)
[2016-07-25 06:27] LABS: A/G RATIO 0.6 (0.7-1.9); ALBUMIN 2.2 G/DL (3.5-5.0); ALKALINE PHOSPHATASE 84 U/L (45-117); BUN (BLOOD UREA NITROGEN) 5 MG/DL (6-23); CALCIUM, SERUM 8.2 MG/DL (8.5-10.4); CHLORIDE, SERUM 103 MMOL/L (96-112); CO2 (CARBON DIOXIDE) 32 MMOL/L (24-34); CREATININE 0.59 MG/DL (0.55-1.02); GFR AFRICAN AMERICAN 127 ML/MIN (>=60); GFR NON AFRICAN AMERICAN 109 ML/MIN (>=60); GLUCOSE, SERUM 121 MG/DL (60-99); POTASSIUM, SERUM 3.8 MMOL/L (3.5-5.3); SGOT(AST) 13 U/L (5-40); SGPT(ALT) 14 U/L (5-65); SODIUM, SERUM 140 MMOL/L (135-148); TOTAL BILIRUBIN 0.5 MG/DL (0-1.2); TOTAL PROTEIN 6.2 G/DL (6.0-8.5)
[2016-07-25 06:31] LABS: HEMATOCRIT 31.6 % (36.0-48.0); MANUAL DIFF NO %
[2016-07-26 05:20] LABS: BASOPHILS 0.3 %; BASOPHILS ABSOLUTE 0.04 10/3/uL (0.0-0.16); EOSINOPHILS 1.9 %; EOSINOPHILS ABSOLUTE 0.25 10/3/uL (0.0-0.53); HEMOGLOBIN 10.9 g/dL (12.0-16.0); IMMATURE GRANULOCYTES 0.3 %; IMMATURE GRANULOCYTES ABSOLUTE 0.04 10/3/uL (0.0-0.11); LYMPHOCYTES 15.5 %; LYMPHOCYTES ABSOLUTE 2.07 10/3/uL (0.67-4.30); MEAN CORPUS HGB CONC 32.1 g/dL (32.0-36.0); MEAN CORPUSCULAR HEMOGLOB 29.3 pg (26.0-34.0); MEAN CORPUSCULAR VOLUME 91.4 fL (80-100); MEAN PLATELET VOLUME 8.8 fL (9.2-13.0); MONOCYTES 11.3 %; MONOCYTES ABSOLUTE 1.51 10/3/uL (0.21-1.20); NEUTROPHILS 70.7 %; NEUTROPHILS ABSOLUTE 9.41 10/3/uL (2.02-8.40); PLATELET COUNT 377 10/3/uL (150-400); RBC DISTRIBUTION WIDTH 13.9 % (12.0-16.0); RED CELL COUNT 3.72 10/6/uL (4.0-5.6); WHITE BLOOD CELLS 13.3 10/3/uL (4.5-10.5)
[2016-07-26 05:23] LABS: A/G RATIO 0.5 (0.7-1.9); ALBUMIN 2.2 G/DL (3.5-5.0); ALKALINE PHOSPHATASE 86 U/L (45-117); BUN (BLOOD UREA NITROGEN) 5 MG/DL (6-23); CALCIUM, SERUM 8.3 MG/DL (8.5-10.4); CHLORIDE, SERUM 103 MMOL/L (96-112); CO2 (CARBON DIOXIDE) 29 MMOL/L (24-34); CREATININE 0.58 MG/DL (0.55-1.02); GFR AFRICAN AMERICAN 127 ML/MIN (>=60); GFR NON AFRICAN AMERICAN 110 ML/MIN (>=60); GLOBULIN 4.2 G/DL (2.5-4.1); GLUCOSE, SERUM 110 MG/DL (60-99); POTASSIUM, SERUM 3.5 MMOL/L (3.5-5.3); SGOT(AST) 8 U/L (5-40); SGPT(ALT) 13 U/L (5-65); SODIUM, SERUM 141 MMOL/L (135-148); TOTAL BILIRUBIN 0.5 MG/DL (0-1.2); TOTAL PROTEIN 6.4 G/DL (6.0-8.5)
[2016-07-26 05:24] LABS: MANUAL DIFF NO %
[2016-07-27 07:30] LABS: BASOPHILS 0.2 %; BASOPHILS ABSOLUTE 0.03 10/3/uL (0.0-0.16); EOSINOPHILS 0 %; HEMATOCRIT 35.6 % (36.0-48.0); HEMOGLOBIN 11.9 g/dL (12.0-16.0); IMMATURE GRANULOCYTES 0.5 %; IMMATURE GRANULOCYTES ABSOLUTE 0.09 10/3/uL (0.0-0.11); LYMPHOCYTES 7.6 %; LYMPHOCYTES ABSOLUTE 1.52 10/3/uL (0.67-4.30); MEAN CORPUS HGB CONC 33.4 g/dL (32.0-36.0); MEAN CORPUSCULAR HEMOGLOB 29.8 pg (26.0-34.0); MEAN CORPUSCULAR VOLUME 89.2 fL (80-100); MEAN PLATELET VOLUME 8.6 fL (9.2-13.0); MONOCYTES 9.8 %; MONOCYTES ABSOLUTE 1.95 10/3/uL (0.21-1.20); NEUTROPHILS 81.9 %; NEUTROPHILS ABSOLUTE 16.37 10/3/uL (2.02-8.40); RBC DISTRIBUTION WIDTH 13.2 % (12.0-16.0); RED CELL COUNT 3.99 10/6/uL (4.0-5.6)
[2016-07-27 07:31] LABS: MANUAL DIFF NO %; PLATELET COUNT 536 10/3/uL (150-400)
[2016-07-27 07:43] LABS: A/G RATIO 0.6 (0.7-1.9); ALBUMIN 2.2 G/DL (3.5-5.0); ALKALINE PHOSPHATASE 119 U/L (45-117); BUN (BLOOD UREA NITROGEN) 5 MG/DL (6-23); CALCIUM, SERUM 8.2 MG/DL (8.5-10.4); CHLORIDE, SERUM 102 MMOL/L (96-112); CO2 (CARBON DIOXIDE) 28 MMOL/L (24-34); CREATININE 0.66 MG/DL (0.55-1.02); GFR AFRICAN AMERICAN 122 ML/MIN (>=60); GFR NON AFRICAN AMERICAN 105 ML/MIN (>=60); GLUCOSE, SERUM 138 MG/DL (60-99); POTASSIUM, SERUM 3.9 MMOL/L (3.5-5.3); SGOT(AST) 16 U/L (5-40); SGPT(ALT) 20 U/L (5-65); SODIUM, SERUM 140 MMOL/L (135-148); TOTAL BILIRUBIN 0.7 MG/DL (0-1.2); TOTAL PROTEIN 6.2 G/DL (6.0-8.5)
[2016-07-28 07:53] LABS: BASOPHILS 0.3 %; BASOPHILS ABSOLUTE 0.04 10/3/uL (0.0-0.16); EOSINOPHILS 2.8 %; EOSINOPHILS ABSOLUTE 0.36 10/3/uL (0.0-0.53); HEMATOCRIT 33.2 % (36.0-48.0); IMMATURE GRANULOCYTES 0.8 %; LYMPHOCYTES 19.3 %; LYMPHOCYTES ABSOLUTE 2.48 10/3/uL (0.67-4.30); MEAN CORPUS HGB CONC 33.1 g/dL (32.0-36.0); MEAN CORPUSCULAR HEMOGLOB 29.9 pg (26.0-34.0); MEAN CORPUSCULAR VOLUME 90.2 fL (80-100); MONOCYTES 12.5 %; NEUTROPHILS 64.3 %; NEUTROPHILS ABSOLUTE 8.25 10/3/uL (2.02-8.40); PLATELET COUNT 410 10/3/uL (150-400); RBC DISTRIBUTION WIDTH 13.4 % (12.0-16.0); RED CELL COUNT 3.68 10/6/uL (4.0-5.6); WHITE BLOOD CELLS 12.8 10/3/uL (4.5-10.5)
[2016-07-28 07:55] LABS: MANUAL DIFF NO %
[2016-07-28 08:09] LABS: A/G RATIO 0.6 (0.7-1.9); ALBUMIN 2.2 G/DL (3.5-5.0); BUN (BLOOD UREA NITROGEN) 6 MG/DL (6-23); CALCIUM, SERUM 8.1 MG/DL (8.5-10.4); CHLORIDE, SERUM 102 MMOL/L (96-112); CO2 (CARBON DIOXIDE) 32 MMOL/L (24-34); CREATININE 0.61 MG/DL (0.55-1.02); GFR AFRICAN AMERICAN 125 ML/MIN (>=60); GFR NON AFRICAN AMERICAN 108 ML/MIN (>=60); GLUCOSE, SERUM 120 MG/DL (60-99); POTASSIUM, SERUM 3.4 MMOL/L (3.5-5.3); SGOT(AST) 62 U/L (5-40); SGPT(ALT) 49 U/L (5-65); SODIUM, SERUM 141 MMOL/L (135-148); TOTAL BILIRUBIN 0.6 MG/DL (0-1.2); TOTAL PROTEIN 6.2 G/DL (6.0-8.5)
[2016-07-28 08:10] LABS: ALKALINE PHOSPHATASE 140 U/L (45-117)
[2016-07-29 06:23] LABS: BASOPHILS 0.4 %; BASOPHILS ABSOLUTE 0.05 10/3/uL (0.0-0.16); EOSINOPHILS ABSOLUTE 0.49 10/3/uL (0.0-0.53); HEMATOCRIT 33.8 % (36.0-48.0); HEMOGLOBIN 11.2 g/dL (12.0-16.0); IMMATURE GRANULOCYTES 1.2 %; IMMATURE GRANULOCYTES ABSOLUTE 0.15 10/3/uL (0.0-0.11); LYMPHOCYTES ABSOLUTE 2.32 10/3/uL (0.67-4.30); MEAN CORPUS HGB CONC 33.1 g/dL (32.0-36.0); MEAN CORPUSCULAR HEMOGLOB 29.9 pg (26.0-34.0); MEAN CORPUSCULAR VOLUME 90.1 fL (80-100); MEAN PLATELET VOLUME 8.3 fL (9.2-13.0); MONOCYTES 11.3 %; MONOCYTES ABSOLUTE 1.38 10/3/uL (0.21-1.20); NEUTROPHILS 64.1 %; NEUTROPHILS ABSOLUTE 7.82 10/3/uL (2.02-8.40); PLATELET COUNT 426 10/3/uL (150-400); RBC DISTRIBUTION WIDTH 13.5 % (12.0-16.0); RED CELL COUNT 3.75 10/6/uL (4.0-5.6); WHITE BLOOD CELLS 12.2 10/3/uL (4.5-10.5)
[2016-07-29 06:26] LABS: MANUAL DIFF NO %
[2016-07-29 06:36] LABS: A/G RATIO 0.5 (0.7-1.9); ALBUMIN 2.3 G/DL (3.5-5.0); ALKALINE PHOSPHATASE 162 U/L (45-117); BUN (BLOOD UREA NITROGEN) 6 MG/DL (6-23); CALCIUM, SERUM 8.6 MG/DL (8.5-10.4); CHLORIDE, SERUM 101 MMOL/L (96-112); CO2 (CARBON DIOXIDE) 29 MMOL/L (24-34); CREATININE 0.66 MG/DL (0.55-1.02); GFR AFRICAN AMERICAN 122 ML/MIN (>=60); GFR NON AFRICAN AMERICAN 105 ML/MIN (>=60); GLOBULIN 4.3 G/DL (2.5-4.1); GLUCOSE, SERUM 115 MG/DL (60-99); POTASSIUM, SERUM 3.6 MMOL/L (3.5-5.3); SGOT(AST) 48 U/L (5-40); SGPT(ALT) 53 U/L (5-65); SODIUM, SERUM 140 MMOL/L (135-148); TOTAL BILIRUBIN 0.6 MG/DL (0-1.2); TOTAL PROTEIN 6.6 G/DL (6.0-8.5)
[2016-07-30 06:26] LABS: BASOPHILS 0.2 %; BASOPHILS ABSOLUTE 0.03 10/3/uL (0.0-0.16); EOSINOPHILS 1.4 %; EOSINOPHILS ABSOLUTE 0.19 10/3/uL (0.0-0.53); HEMATOCRIT 36.6 % (36.0-48.0); HEMOGLOBIN 12.3 g/dL (12.0-16.0); IMMATURE GRANULOCYTES 1.8 %; IMMATURE GRANULOCYTES ABSOLUTE 0.24 10/3/uL (0.0-0.11); LYMPHOCYTES 9.9 %; LYMPHOCYTES ABSOLUTE 1.32 10/3/uL (0.67-4.30); MEAN CORPUS HGB CONC 33.6 g/dL (32.0-36.0); MEAN CORPUSCULAR HEMOGLOB 29.9 pg (26.0-34.0); MEAN CORPUSCULAR VOLUME 89.1 fL (80-100); MEAN PLATELET VOLUME 8.2 fL (9.2-13.0); MONOCYTES 10.2 %; MONOCYTES ABSOLUTE 1.36 10/3/uL (0.21-1.20); NEUTROPHILS 76.5 %; NEUTROPHILS ABSOLUTE 10.19 10/3/uL (2.02-8.40); PLATELET COUNT 438 10/3/uL (150-400); RBC DISTRIBUTION WIDTH 13.5 % (12.0-16.0); RED CELL COUNT 4.11 10/6/uL (4.0-5.6); WHITE BLOOD CELLS 13.3 10/3/uL (4.5-10.5)
[2016-07-30 06:30] LABS: MANUAL DIFF NO %
[2016-07-30 06:36] LABS: A/G RATIO 0.6 (0.7-1.9); ALBUMIN 2.7 G/DL (3.5-5.0); ALKALINE PHOSPHATASE 218 U/L (45-117); BUN (BLOOD UREA NITROGEN) 4 MG/DL (6-23); CALCIUM, SERUM 9.1 MG/DL (8.5-10.4); CHLORIDE, SERUM 104 MMOL/L (96-112); CO2 (CARBON DIOXIDE) 28 MMOL/L (24-34); CREATININE 0.65 MG/DL (0.55-1.02); GFR AFRICAN AMERICAN 123 ML/MIN (>=60); GFR NON AFRICAN AMERICAN 106 ML/MIN (>=60); GLOBULIN 4.6 G/DL (2.5-4.1); GLUCOSE, SERUM 142 MG/DL (60-99); POTASSIUM, SERUM 3.8 MMOL/L (3.5-5.3); SGOT(AST) 51 U/L (5-40); SGPT(ALT) 65 U/L (5-65); SODIUM, SERUM 142 MMOL/L (135-148); TOTAL BILIRUBIN 0.7 MG/DL (0-1.2); TOTAL PROTEIN 7.3 G/DL (6.0-8.5)
[2016-07-31 06:26] LABS: BASOPHILS 0.4 %; BASOPHILS ABSOLUTE 0.05 10/3/uL (0.0-0.16); EOSINOPHILS 2.7 %; EOSINOPHILS ABSOLUTE 0.32 10/3/uL (0.0-0.53); HEMATOCRIT 35.1 % (36.0-48.0); HEMOGLOBIN 11.6 g/dL (12.0-16.0); IMMATURE GRANULOCYTES 1.7 %; LYMPHOCYTES 20.1 %; LYMPHOCYTES ABSOLUTE 2.35 10/3/uL (0.67-4.30); MANUAL DIFF NO %; MEAN CORPUSCULAR HEMOGLOB 29.7 pg (26.0-34.0); MEAN CORPUSCULAR VOLUME 89.8 fL (80-100); MONOCYTES 12.3 %; MONOCYTES ABSOLUTE 1.43 10/3/uL (0.21-1.20); NEUTROPHILS 62.8 %; NEUTROPHILS ABSOLUTE 7.32 10/3/uL (2.02-8.40); PLATELET COUNT 390 10/3/uL (150-400); RBC DISTRIBUTION WIDTH 13.8 % (12.0-16.0); RED CELL COUNT 3.91 10/6/uL (4.0-5.6); WHITE BLOOD CELLS 11.7 10/3/uL (4.5-10.5)
[2016-07-31 06:40] LABS: A/G RATIO 0.6 (0.7-1.9); ALBUMIN 2.6 G/DL (3.5-5.0); BUN (BLOOD UREA NITROGEN) 7 MG/DL (6-23); CALCIUM, SERUM 8.6 MG/DL (8.5-10.4); CHLORIDE, SERUM 101 MMOL/L (96-112); CO2 (CARBON DIOXIDE) 31 MMOL/L (24-34); CREATININE 0.79 MG/DL (0.55-1.02); GFR AFRICAN AMERICAN 103 ML/MIN (>=60); GFR NON AFRICAN AMERICAN 89 ML/MIN (>=60); GLOBULIN 4.2 G/DL (2.5-4.1); GLUCOSE, SERUM 119 MG/DL (60-99); POTASSIUM, SERUM 3.5 MMOL/L (3.5-5.3); SGOT(AST) 32 U/L (5-40); SGPT(ALT) 49 U/L (5-65); SODIUM, SERUM 141 MMOL/L (135-148); TOTAL PROTEIN 6.8 G/DL (6.0-8.5)
[2016-07-31 06:41] LABS: ALKALINE PHOSPHATASE 192 U/L (45-117); TOTAL BILIRUBIN 1.3 MG/DL (0-1.2)
[2016-07-31 14:57] LABS: PHOSPHORUS, SERUM 2.9 MG/DL (2.5-4.5)
[2016-08-01 06:46] LABS: BASOPHILS 0.2 %; BASOPHILS ABSOLUTE 0.03 10/3/uL (0.0-0.16); EOSINOPHILS 2.5 %; EOSINOPHILS ABSOLUTE 0.32 10/3/uL (0.0-0.53); HEMATOCRIT 34.2 % (36.0-48.0); HEMOGLOBIN 11.3 g/dL (12.0-16.0); IMMATURE GRANULOCYTES 1.7 %; IMMATURE GRANULOCYTES ABSOLUTE 0.22 10/3/uL (0.0-0.11); LYMPHOCYTES 17.7 %; LYMPHOCYTES ABSOLUTE 2.24 10/3/uL (0.67-4.30); MEAN CORPUSCULAR HEMOGLOB 29.1 pg (26.0-34.0); MEAN CORPUSCULAR VOLUME 88.1 fL (80-100); MEAN PLATELET VOLUME 8.1 fL (9.2-13.0); MONOCYTES 10.7 %; MONOCYTES ABSOLUTE 1.36 10/3/uL (0.21-1.20); NEUTROPHILS 67.2 %; NEUTROPHILS ABSOLUTE 8.51 10/3/uL (2.02-8.40); PLATELET COUNT 335 10/3/uL (150-400); RBC DISTRIBUTION WIDTH 14.4 % (12.0-16.0); RED CELL COUNT 3.88 10/6/uL (4.0-5.6); WHITE BLOOD CELLS 12.7 10/3/uL (4.5-10.5)
[2016-08-01 06:47] LABS: MANUAL DIFF NO %
[2016-08-01 07:12] LABS: A/G RATIO 0.7 (0.7-1.9); ALBUMIN 2.8 G/DL (3.5-5.0); ALKALINE PHOSPHATASE 178 U/L (45-117); BUN (BLOOD UREA NITROGEN) 12 MG/DL (6-23); CALCIUM, SERUM 8.4 MG/DL (8.5-10.4); CHLORIDE, SERUM 105 MMOL/L (96-112); CO2 (CARBON DIOXIDE) 30 MMOL/L (24-34); CREATININE 0.72 MG/DL (0.55-1.02); GFR AFRICAN AMERICAN 116 ML/MIN (>=60); GFR NON AFRICAN AMERICAN 100 ML/MIN (>=60); GLOBULIN 4.2 G/DL (2.5-4.1); GLUCOSE, SERUM 121 MG/DL (60-99); PHOSPHORUS, SERUM 2.7 MG/DL (2.5-4.5); POTASSIUM, SERUM 3.6 MMOL/L (3.5-5.3); PREALBUMIN 29.7 MG/DL (17.0-43.0); SGOT(AST) 30 U/L (5-40); SGPT(ALT) 53 U/L (5-65); SODIUM, SERUM 140 MMOL/L (135-148); TOTAL BILIRUBIN 0.9 MG/DL (0-1.2); TRIGLYCERIDE 325 MG/DL (< 150)
[2016-08-02 04:45] LABS: HEMOGLOBIN 11.6 g/dL (12.0-16.0); MEAN CORPUS HGB CONC 33.1 g/dL (32.0-36.0); MEAN CORPUSCULAR VOLUME 90.4 fL (80-100); MEAN PLATELET VOLUME 8.2 fL (9.2-13.0); PLATELET COUNT 294 10/3/uL (150-400); RBC DISTRIBUTION WIDTH 14.3 % (12.0-16.0); RED CELL COUNT 3.87 10/6/uL (4.0-5.6); WHITE BLOOD CELLS 12.6 10/3/uL (4.5-10.5)
[2016-08-02 04:48] LABS: MANUAL DIFF YES %
[2016-08-02 04:56] LABS: A/G RATIO 0.7 (0.7-1.9); ALBUMIN 2.9 G/DL (3.5-5.0); BUN (BLOOD UREA NITROGEN) 15 MG/DL (6-23); CALCIUM, SERUM 8.7 MG/DL (8.5-10.4); CHLORIDE, SERUM 103 MMOL/L (96-112); CO2 (CARBON DIOXIDE) 28 MMOL/L (24-34); GFR AFRICAN AMERICAN 120 ML/MIN (>=60); GFR NON AFRICAN AMERICAN 103 ML/MIN (>=60); GLOBULIN 4.3 G/DL (2.5-4.1); GLUCOSE, SERUM 121 MG/DL (60-99); PHOSPHORUS, SERUM 2.9 MG/DL (2.5-4.5); POTASSIUM, SERUM 3.8 MMOL/L (3.5-5.3); SGOT(AST) 35 U/L (5-40); SGPT(ALT) 48 U/L (5-65); SODIUM, SERUM 138 MMOL/L (135-148); TOTAL BILIRUBIN 0.8 MG/DL (0-1.2); TOTAL PROTEIN 7.2 G/DL (6.0-8.5)
[2016-08-02 05:05] LABS: ALKALINE PHOSPHATASE 146 U/L (45-117)
[2016-08-02 05:47] LABS: BAND NEUTROPHILS 2 %; EOSINOPHILS 2 %; EOSINOPHILS ABSOLUTE (CALC) 0.25 10/3/uL (0.0-0.53); LYMPHOCYTES 11 %; LYMPHOCYTES ABSOLUTE (CALC) 1.39 10/3/uL (0.67-4.30); MONOCYTES 4 %; NEUTROPHILS ABSOLUTE (CALC) 10.46 10/3/uL (2.02-8.40); SEGMENTED NEUTROPHIL (0) 81 %; TOTAL NUCLEATED CELLS 100
[2016-08-02 05:48] LABS: PLATELET ESTIMATE ADQ (ADEQUATE); RBC MORPHOLOGY NORM (NORMAL)
[2016-08-03 06:38] LABS: BASOPHILS 0.3 %; BASOPHILS ABSOLUTE 0.04 10/3/uL (0.0-0.16); EOSINOPHILS 2.6 %; EOSINOPHILS ABSOLUTE 0.33 10/3/uL (0.0-0.53); HEMATOCRIT 37.5 % (36.0-48.0); HEMOGLOBIN 12.5 g/dL (12.0-16.0); IMMATURE GRANULOCYTES ABSOLUTE 0.25 10/3/uL (0.0-0.11); LYMPHOCYTES 17.5 %; LYMPHOCYTES ABSOLUTE 2.24 10/3/uL (0.67-4.30); MEAN CORPUS HGB CONC 33.3 g/dL (32.0-36.0); MEAN CORPUSCULAR HEMOGLOB 29.8 pg (26.0-34.0); MEAN CORPUSCULAR VOLUME 89.3 fL (80-100); MEAN PLATELET VOLUME 8.6 fL (9.2-13.0); MONOCYTES 9.4 %; NEUTROPHILS 68.2 %; NEUTROPHILS ABSOLUTE 8.73 10/3/uL (2.02-8.40); PLATELET COUNT 262 10/3/uL (150-400); RBC DISTRIBUTION WIDTH 14.5 % (12.0-16.0); WHITE BLOOD CELLS 12.8 10/3/uL (4.5-10.5)
[2016-08-03 06:42] LABS: MANUAL DIFF NO %
[2016-08-03 06:52] LABS: A/G RATIO 0.7 (0.7-1.9); ALBUMIN 3.2 G/DL (3.5-5.0); BUN (BLOOD UREA NITROGEN) 17 MG/DL (6-23); CALCIUM, SERUM 9.1 MG/DL (8.5-10.4); CHLORIDE, SERUM 102 MMOL/L (96-112); CO2 (CARBON DIOXIDE) 26 MMOL/L (24-34); CREATININE 0.82 MG/DL (0.55-1.02); GFR AFRICAN AMERICAN 99 ML/MIN (>=60); GFR NON AFRICAN AMERICAN 85 ML/MIN (>=60); GLOBULIN 4.7 G/DL (2.5-4.1); GLUCOSE, SERUM 140 MG/DL (60-99); PHOSPHORUS, SERUM 3.3 MG/DL (2.5-4.5); POTASSIUM, SERUM 4.1 MMOL/L (3.5-5.3); SGOT(AST) 50 U/L (5-40); SGPT(ALT) 58 U/L (5-65); SODIUM, SERUM 135 MMOL/L (135-148); TOTAL BILIRUBIN 0.9 MG/DL (0-1.2); TOTAL PROTEIN 7.9 G/DL (6.0-8.5); TRIGLYCERIDE 359 MG/DL (< 150)
[2016-08-03 06:56] LABS: ALKALINE PHOSPHATASE 188 U/L (45-117)
[2016-08-04 06:13] LABS: BASOPHILS 0.3 %; BASOPHILS ABSOLUTE 0.05 10/3/uL (0.0-0.16); EOSINOPHILS 1.6 %; EOSINOPHILS ABSOLUTE 0.23 10/3/uL (0.0-0.53); HEMATOCRIT 39.8 % (36.0-48.0); HEMOGLOBIN 13.1 g/dL (12.0-16.0); IMMATURE GRANULOCYTES 1.6 %; IMMATURE GRANULOCYTES ABSOLUTE 0.23 10/3/uL (0.0-0.11); LYMPHOCYTES 14.2 %; MEAN CORPUS HGB CONC 32.9 g/dL (32.0-36.0); MEAN CORPUSCULAR HEMOGLOB 29.6 pg (26.0-34.0); MEAN CORPUSCULAR VOLUME 89.8 fL (80-100); MONOCYTES 9.8 %; MONOCYTES ABSOLUTE 1.45 10/3/uL (0.21-1.20); NEUTROPHILS 72.5 %; NEUTROPHILS ABSOLUTE 10.69 10/3/uL (2.02-8.40); PLATELET COUNT 266 10/3/uL (150-400); RBC DISTRIBUTION WIDTH 14.7 % (12.0-16.0); RED CELL COUNT 4.43 10/6/uL (4.0-5.6); WHITE BLOOD CELLS 14.8 10/3/uL (4.5-10.5)
[2016-08-04 06:14] LABS: MANUAL DIFF NO %
[2016-08-04 06:25] LABS: A/G RATIO 0.7 (0.7-1.9); ALBUMIN 3.4 G/DL (3.5-5.0); ALKALINE PHOSPHATASE 184 U/L (45-117); BUN (BLOOD UREA NITROGEN) 16 MG/DL (6-23); CALCIUM, SERUM 8.9 MG/DL (8.5-10.4); CHLORIDE, SERUM 100 MMOL/L (96-112); CO2 (CARBON DIOXIDE) 26 MMOL/L (24-34); CREATININE 0.67 MG/DL (0.55-1.02); GFR AFRICAN AMERICAN 121 ML/MIN (>=60); GFR NON AFRICAN AMERICAN 105 ML/MIN (>=60); GLOBULIN 4.8 G/DL (2.5-4.1); GLUCOSE, SERUM 127 MG/DL (60-99); PHOSPHORUS, SERUM 2.7 MG/DL (2.5-4.5); POTASSIUM, SERUM 4.2 MMOL/L (3.5-5.3); SGOT(AST) 31 U/L (5-40); SGPT(ALT) 50 U/L (5-65); SODIUM, SERUM 138 MMOL/L (135-148); TOTAL BILIRUBIN 0.9 MG/DL (0-1.2); TOTAL PROTEIN 8.2 G/DL (6.0-8.5)
[2016-08-05 06:11] LABS: BASOPHILS 0.3 %; BASOPHILS ABSOLUTE 0.04 10/3/uL (0.0-0.16); EOSINOPHILS 1.7 %; EOSINOPHILS ABSOLUTE 0.24 10/3/uL (0.0-0.53); HEMATOCRIT 39.1 % (36.0-48.0); HEMOGLOBIN 12.9 g/dL (12.0-16.0); IMMATURE GRANULOCYTES 1.5 %; LYMPHOCYTES 17.9 %; LYMPHOCYTES ABSOLUTE 2.46 10/3/uL (0.67-4.30); MEAN CORPUSCULAR HEMOGLOB 29.7 pg (26.0-34.0); MEAN CORPUSCULAR VOLUME 90.1 fL (80-100); MEAN PLATELET VOLUME 9.1 fL (9.2-13.0); MONOCYTES 11.7 %; MONOCYTES ABSOLUTE 1.61 10/3/uL (0.21-1.20); NEUTROPHILS 66.9 %; NEUTROPHILS ABSOLUTE 9.22 10/3/uL (2.02-8.40); PLATELET COUNT 249 10/3/uL (150-400); RBC DISTRIBUTION WIDTH 14.7 % (12.0-16.0); RED CELL COUNT 4.34 10/6/uL (4.0-5.6); WHITE BLOOD CELLS 13.8 10/3/uL (4.5-10.5)
[2016-08-05 06:13] LABS: MANUAL DIFF NO %
[2016-08-05 06:24] LABS: BUN (BLOOD UREA NITROGEN) 19 MG/DL (6-23); CALCIUM, SERUM 9.4 MG/DL (8.5-10.4); CHLORIDE, SERUM 99 MMOL/L (96-112); CO2 (CARBON DIOXIDE) 29 MMOL/L (24-34); CREATININE 0.68 MG/DL (0.55-1.02); GFR AFRICAN AMERICAN 121 ML/MIN (>=60); GFR NON AFRICAN AMERICAN 104 ML/MIN (>=60); GLUCOSE, SERUM 128 MG/DL (60-99); POTASSIUM, SERUM 3.9 MMOL/L (3.5-5.3); SODIUM, SERUM 138 MMOL/L (135-148)
[2016-08-06 06:45] LABS: BASOPHILS 0.2 %; BASOPHILS ABSOLUTE 0.02 10/3/uL (0.0-0.16); EOSINOPHILS 2.4 %; EOSINOPHILS ABSOLUTE 0.26 10/3/uL (0.0-0.53); HEMATOCRIT 35.8 % (36.0-48.0); HEMOGLOBIN 11.7 g/dL (12.0-16.0); IMMATURE GRANULOCYTES 1.3 %; IMMATURE GRANULOCYTES ABSOLUTE 0.14 10/3/uL (0.0-0.11); LYMPHOCYTES 24.7 %; LYMPHOCYTES ABSOLUTE 2.62 10/3/uL (0.67-4.30); MEAN CORPUS HGB CONC 32.7 g/dL (32.0-36.0); MEAN CORPUSCULAR HEMOGLOB 29.7 pg (26.0-34.0); MEAN CORPUSCULAR VOLUME 90.9 fL (80-100); MEAN PLATELET VOLUME 9.4 fL (9.2-13.0); MONOCYTES 11.1 %; MONOCYTES ABSOLUTE 1.18 10/3/uL (0.21-1.20); NEUTROPHILS 60.3 %; PLATELET COUNT 200 10/3/uL (150-400); RBC DISTRIBUTION WIDTH 14.9 % (12.0-16.0); RED CELL COUNT 3.94 10/6/uL (4.0-5.6); WHITE BLOOD CELLS 10.6 10/3/uL (4.5-10.5)
[2016-08-06 06:47] LABS: MANUAL DIFF NO %
[2016-08-06 06:56] LABS: BUN (BLOOD UREA NITROGEN) 16 MG/DL (6-23); CALCIUM, SERUM 8.5 MG/DL (8.5-10.4); CHLORIDE, SERUM 105 MMOL/L (96-112); CO2 (CARBON DIOXIDE) 25 MMOL/L (24-34); CREATININE 0.58 MG/DL (0.55-1.02); GFR AFRICAN AMERICAN 127 ML/MIN (>=60); GFR NON AFRICAN AMERICAN 110 ML/MIN (>=60); GLUCOSE, SERUM 125 MG/DL (60-99); PHOSPHORUS, SERUM 3.1 MG/DL (2.5-4.5); POTASSIUM, SERUM 4.2 MMOL/L (3.5-5.3); SODIUM, SERUM 139 MMOL/L (135-148); TRIGLYCERIDE 308 MG/DL (< 150)
[2016-08-07 06:32] LABS: BUN (BLOOD UREA NITROGEN) 16 MG/DL (6-23); CALCIUM, SERUM 8.6 MG/DL (8.5-10.4); CHLORIDE, SERUM 102 MMOL/L (96-112); CO2 (CARBON DIOXIDE) 29 MMOL/L (24-34); CREATININE 0.57 MG/DL (0.55-1.02); GFR AFRICAN AMERICAN 128 ML/MIN (>=60); GFR NON AFRICAN AMERICAN 110 ML/MIN (>=60); PHOSPHORUS, SERUM 3.4 MG/DL (2.5-4.5); POTASSIUM, SERUM 3.9 MMOL/L (3.5-5.3); SODIUM, SERUM 140 MMOL/L (135-148)
[2016-08-07 06:33] LABS: GLUCOSE, SERUM 99 MG/DL (60-99)
[2016-08-08 05:51] LABS: BUN (BLOOD UREA NITROGEN) 15 MG/DL (6-23); CALCIUM, SERUM 8.9 MG/DL (8.5-10.4); CHLORIDE, SERUM 102 MMOL/L (96-112); CO2 (CARBON DIOXIDE) 28 MMOL/L (24-34); CREATININE 0.61 MG/DL (0.55-1.02); GFR AFRICAN AMERICAN 125 ML/MIN (>=60); GFR NON AFRICAN AMERICAN 108 ML/MIN (>=60); GLUCOSE, SERUM 84 MG/DL (60-99); POTASSIUM, SERUM 3.9 MMOL/L (3.5-5.3); SODIUM, SERUM 140 MMOL/L (135-148)
[2016-08-09 05:40] LABS: BUN (BLOOD UREA NITROGEN) 13 MG/DL (6-23); CALCIUM, SERUM 8.8 MG/DL (8.5-10.4); CHLORIDE, SERUM 102 MMOL/L (96-112); CO2 (CARBON DIOXIDE) 30 MMOL/L (24-34); CREATININE 0.72 MG/DL (0.55-1.02); GFR AFRICAN AMERICAN 116 ML/MIN (>=60); GFR NON AFRICAN AMERICAN 100 ML/MIN (>=60); GLUCOSE, SERUM 92 MG/DL (60-99); POTASSIUM, SERUM 3.7 MMOL/L (3.5-5.3); SODIUM, SERUM 139 MMOL/L (135-148)
[2017-01-02] MEDS ORDERED: ZOLOFT25 MG PO (13:23)
[2017-01-02] MEDS ORDERED: ST. JOHN'S300 MG PO (13:24)
[2017-01-02] MEDS ORDERED: [UNRECOGNIZED DRUG - OTHER] OPH (13:25)
[2017-01-02] MEDS ORDERED: NASACORTAQ NAS (13:26)
[2017-01-02] MEDS ORDERED: IBU-200200 MG PO (13:27)
== END 2016-08-09 13:58 | disposition home or self-care (01) | DRG 330 ==
LOC: CDU1 16:43 → 2SO 22:51 → 5SO 07-24 14:14
PROVIDERS: Specialist; Surgery
PROC: 0DTJ0ZZ Resection of Appendix, Open Approach (ICD-10-PCS; 2016-07-23)
PROC: 0DBN0ZZ Excision of Sigmoid Colon, Open Approach (ICD-10-PCS; principal; 2016-07-23 17:45)
PROC: 0D1N0ZP Bypass Sigmoid Colon to Rectum, Open Approach (ICD-10-PCS; 2016-07-26)
PROC: 0DJD8ZZ Inspection of Lower Intestinal Tract, Via Natural or Artificial Opening Endoscopic (ICD-10-PCS; 2016-07-26)
PROC: 3E0436Z Introduction of Nutritional Substance into Central Vein, Percutaneous Approach (ICD-10-PCS; 2016-07-31)
PROC: 02HV33Z Insertion of Infusion Device into Superior Vena Cava, Percutaneous Approach (ICD-10-PCS; 2016-07-31)
PROC: 4A02X4A Measurement of Cardiac Electrical Activity, Guidance, External Approach (ICD-10-PCS; 2016-07-31)
DX: K57.20 Diverticulitis of large intestine with perforation and abscess without bleeding (principal); K56.7 Ileus, unspecified; E44.1 Mild protein-calorie malnutrition; K21.9 Gastro-esophageal reflux disease without esophagitis; Z90.49 Acquired absence of other specified parts of digestive tract; Z90.710 Acquired absence of both cervix and uterus; Z68.27 Body mass index [BMI] 27.0-27.9, adult
CPT/HCPCS: 36569; 74000; 74176; 80048; 80053; 82330; 82962; 83735; 84100; 84134; 84478; 85025; 87015; 87070; 87075; 87102; 87116; 87205; 88302; 88304; 88307; A9270-GY; C1751; J0330; J1170; J2250; J2370; J2405; J2543; J2550; J2710; J2795; J3010; P9045

== ENCOUNTER 2017-01-04 10:39 | Inpatient (IN) | payer BC, OTHER ==
[2017-01-01 17:11] LABS: HEMATOCRIT 43.8 % (36.0-48.0); HEMOGLOBIN 14.8 g/dL (12.0-16.0)
[2017-01-01 17:38] LABS: A/G RATIO 1.3 (0.7-1.9); ALBUMIN 4.4 G/DL (3.5-5.0); ALKALINE PHOSPHATASE 85 U/L (45-117); CALCIUM, SERUM 9.4 MG/DL (8.5-10.4); CHLORIDE, SERUM 99 MMOL/L (96-112); CO2 (CARBON DIOXIDE) 30 MMOL/L (24-34); CREATININE 0.64 MG/DL (0.55-1.02); GFR AFRICAN AMERICAN 122 ML/MIN (>=60); GFR NON AFRICAN AMERICAN 106 ML/MIN (>=60); GLOBULIN 3.5 G/DL (2.5-4.1); GLUCOSE, SERUM 74 MG/DL (60-99); POTASSIUM, SERUM 4.6 MMOL/L (3.5-5.3); SGOT(AST) 15 U/L (5-40); SGPT(ALT) 28 U/L (5-65); SODIUM, SERUM 135 MMOL/L (135-148); TOTAL PROTEIN 7.9 G/DL (6.0-8.5)
[2017-01-01 17:39] LABS: BUN (BLOOD UREA NITROGEN) 14 MG/DL (6-23); TOTAL BILIRUBIN 1.1 MG/DL (0-1.2)
[~2017-01-04] VITALS: Ht 165.1 cm; Wt 85.3 kg
--- NOTE | ~2017-01-04 | OP ---
Record Of Operation [facility] [address] [place]. [address] NAME: SUKHJINDER GONSALVES : 66 STATUS : ADM Marisa PAT#: [id number] AGE: 46 ADM/REG DATE : 01/04/17 MR#: [id number] REPORT SERV DATE: 01/04/17 DICTATED BY: EDWARD DIEZ DATE: 01/04/17 REPORT STATUS : Draft TRANSCRIBED BY: MODL DATE: 01/04/17 DATE OF PROCEDURE: 01/04/2017 PREOPERATIVE DIAGNOSIS: Ventral incisional hernia. POSTOPERATIVE DIAGNOSIS: Ventral incisional hernia. PROCEDURE: Component separation technique with mesh repair of ventral incisional hernia. DESCRIPTION OF OPERATIVE PROCEDURE: The patient was brought to the operating suite, placed in the supine position, and underwent satisfactory general endotracheal anesthesia without incident. The skin of the abdomen was scrubbed, prepped, and draped in usual sterile fashion. The patient had a previous infraumbilical midline incision extending just above the umbilicus. There was a ventral/incisional hernia with significant separation or diastasis of the rectus muscle below the umbilicus and then a large umbilical hernia defect associated with this infraumbilical incision. A skin incision was made dissecting through the thickened subcutaneous tissue to the hernia sac. The largest component of the hernia sac was at the umbilicus and the mesothelial sac was excised from the overlying skin and fatty tissue. The midline was identified and divided and then the peritoneal cavity was entered, enterolysis was performed with small bowel and omental adhesions to free the underneath surface of the abdominal midline musculature from adhesions. Then bilaterally, recto-rectus dissection was performed by initially identifying the rectus musculature near the midline on the left. The rectus sheath was significantly displaced laterally. The rectus musculature with the attached overlying anterior rectus sheath was dissected bluntly and with cautery dissection up off the posterior rectus sheath bilaterally to the full extent laterally and then superiorly and inferiorly above the muscular aponeurotic defect. Hemostasis was assured. The posterior rectus sheath was closed in the midline with multiple interrupted figure-of- eight sutures of #[address] patch 15 x 20 cm in size was chosen. It was trimmed in a "butterfly" fashion and placed on the posterior rectus sheath. Closure was plicated in position with multiple firings of the secure strap. The anterior rectus sheath with attached rectus musculature were closed again in the midline with multiple interrupted [id number] sutures of #1 Vicryl sandwiching the mesh between the posterior rectus sheath and the rectus musculature in a retro-rectus plane. Subcutaneous tissue was irrigated and then redundant skin and fat was excised and then closed in the midline with multiple layers with 3-0 Vicryl, running subcuticular stitch with 4-0 Vicryl for the skin. Dermabond skin adhesive applied. Record Of Operation [address] [place]. [address] NAME: SUKHJINDER GONSALVES : 66 STATUS : ADM Marisa PAT#: [id number] AGE: 46 ADM/REG DATE : 01/04/17 MR#: [id number] REPORT SERV DATE: 01/04/17 DICTATED BY: EDWARD DIEZ DATE: 01/04/17 REPORT STATUS : Draft TRANSCRIBED BY: MARK DATE: 01/04/17 The patient tolerated the procedure well, was returned to PACU in stable condition. At the termination of the procedure, sponge, needle, lap, and instrument counts were correct x3. ESTIMATED BLOOD LOSS: 30-50 mL. RAI/MARK Edward Diez M.D. / [id number] CC: Laurita Frederick M.D.
[~2017-01-04 10:39] MED LIST changes: +IBU-200200 MG PO; +NASACORTAQ NAS; +ZOLOFT25 MG PO; +[UNRECOGNIZED DRUG - OTHER] OPH
[2017-01-05 07:16] LABS: BASOPHILS 0 %; BASOPHILS ABSOLUTE 0.01 10/3/uL (0.0-0.16); EOSINOPHILS 0 %; HEMOGLOBIN 12.6 g/dL (12.0-16.0); IMMATURE GRANULOCYTES 0.5 %; IMMATURE GRANULOCYTES ABSOLUTE 0.12 10/3/uL (0.0-0.11); LYMPHOCYTES 10.8 %; LYMPHOCYTES ABSOLUTE 2.55 10/3/uL (0.67-4.30); MEAN CORPUS HGB CONC 33.2 g/dL (32.0-36.0); MEAN CORPUSCULAR HEMOGLOB 30.2 pg (26.0-34.0); MEAN CORPUSCULAR VOLUME 91.1 fL (80-100); MEAN PLATELET VOLUME 9.2 fL (9.2-13.0); MONOCYTES 9.4 %; MONOCYTES ABSOLUTE 2.21 10/3/uL (0.21-1.20); NEUTROPHILS 79.3 %; NEUTROPHILS ABSOLUTE 18.69 10/3/uL (2.02-8.40); PLATELET COUNT 224 10/3/uL (150-400); RBC DISTRIBUTION WIDTH 14.7 % (12.0-16.0); RED CELL COUNT 4.17 10/6/uL (4.0-5.6)
[2017-01-05 07:18] LABS: MANUAL DIFF NO %; WHITE BLOOD CELLS 23.6 10/3/uL (4.5-10.5)
[2017-01-05 07:31] LABS: ALBUMIN 3.3 G/DL (3.5-5.0); ALKALINE PHOSPHATASE 58 U/L (45-117); BUN (BLOOD UREA NITROGEN) 13 MG/DL (6-23); CALCIUM, SERUM 7.7 MG/DL (8.5-10.4); CHLORIDE, SERUM 100 MMOL/L (96-112); CO2 (CARBON DIOXIDE) 31 MMOL/L (24-34); CREATININE 0.81 MG/DL (0.55-1.02); GFR AFRICAN AMERICAN 100 ML/MIN (>=60); GFR NON AFRICAN AMERICAN 86 ML/MIN (>=60); GLOBULIN 3.3 G/DL (2.5-4.1); GLUCOSE, SERUM 112 MG/DL (60-99); POTASSIUM, SERUM 4.3 MMOL/L (3.5-5.3); SGOT(AST) 19 U/L (5-40); SGPT(ALT) 26 U/L (5-65); SODIUM, SERUM 138 MMOL/L (135-148); TOTAL BILIRUBIN 1.3 MG/DL (0-1.2); TOTAL PROTEIN 6.6 G/DL (6.0-8.5)
[2017-01-06 07:04] LABS: BASOPHILS 0.2 %; BASOPHILS ABSOLUTE 0.03 10/3/uL (0.0-0.16); EOSINOPHILS 0.5 %; EOSINOPHILS ABSOLUTE 0.07 10/3/uL (0.0-0.53); HEMATOCRIT 39.5 % (36.0-48.0); HEMOGLOBIN 12.8 g/dL (12.0-16.0); IMMATURE GRANULOCYTES 0.6 %; IMMATURE GRANULOCYTES ABSOLUTE 0.09 10/3/uL (0.0-0.11); LYMPHOCYTES 22.9 %; LYMPHOCYTES ABSOLUTE 3.37 10/3/uL (0.67-4.30); MEAN CORPUS HGB CONC 32.4 g/dL (32.0-36.0); MEAN CORPUSCULAR HEMOGLOB 30.1 pg (26.0-34.0); MEAN CORPUSCULAR VOLUME 92.9 fL (80-100); MEAN PLATELET VOLUME 9.2 fL (9.2-13.0); MONOCYTES 9.6 %; MONOCYTES ABSOLUTE 1.41 10/3/uL (0.21-1.20); NEUTROPHILS 66.2 %; NEUTROPHILS ABSOLUTE 9.75 10/3/uL (2.02-8.40); PLATELET COUNT 197 10/3/uL (150-400); RBC DISTRIBUTION WIDTH 15.1 % (12.0-16.0); RED CELL COUNT 4.25 10/6/uL (4.0-5.6); WHITE BLOOD CELLS 14.7 10/3/uL (4.5-10.5)
[2017-01-06 07:06] LABS: MANUAL DIFF NO %
[2017-01-06 07:15] LABS: BUN (BLOOD UREA NITROGEN) 13 MG/DL (6-23); CALCIUM, SERUM 7.9 MG/DL (8.5-10.4); CHLORIDE, SERUM 100 MMOL/L (96-112); CO2 (CARBON DIOXIDE) 31 MMOL/L (24-34); CREATININE 0.79 MG/DL (0.55-1.02); GFR AFRICAN AMERICAN 103 ML/MIN (>=60); GFR NON AFRICAN AMERICAN 89 ML/MIN (>=60); GLUCOSE, SERUM 92 MG/DL (60-99); POTASSIUM, SERUM 3.7 MMOL/L (3.5-5.3); SODIUM, SERUM 138 MMOL/L (135-148)
[2017-01-07 05:11] LABS: BASOPHILS 0.3 %; BASOPHILS ABSOLUTE 0.03 10/3/uL (0.0-0.16); EOSINOPHILS 1.8 %; EOSINOPHILS ABSOLUTE 0.21 10/3/uL (0.0-0.53); HEMATOCRIT 37.7 % (36.0-48.0); HEMOGLOBIN 12.5 g/dL (12.0-16.0); IMMATURE GRANULOCYTES 0.6 %; IMMATURE GRANULOCYTES ABSOLUTE 0.07 10/3/uL (0.0-0.11); LYMPHOCYTES ABSOLUTE 3.11 10/3/uL (0.67-4.30); MANUAL DIFF NO %; MEAN CORPUS HGB CONC 33.2 g/dL (32.0-36.0); MEAN CORPUSCULAR HEMOGLOB 30.5 pg (26.0-34.0); MEAN PLATELET VOLUME 9.2 fL (9.2-13.0); MONOCYTES 8.7 %; NEUTROPHILS 61.6 %; PLATELET COUNT 204 10/3/uL (150-400); RBC DISTRIBUTION WIDTH 14.4 % (12.0-16.0); WHITE BLOOD CELLS 11.5 10/3/uL (4.5-10.5)
[2017-01-07 05:21] LABS: BUN (BLOOD UREA NITROGEN) 11 MG/DL (6-23); CALCIUM, SERUM 8.5 MG/DL (8.5-10.4); CHLORIDE, SERUM 102 MMOL/L (96-112); CO2 (CARBON DIOXIDE) 32 MMOL/L (24-34); CREATININE 0.69 MG/DL (0.55-1.02); GFR AFRICAN AMERICAN 119 ML/MIN (>=60); GFR NON AFRICAN AMERICAN 103 ML/MIN (>=60); GLUCOSE, SERUM 84 MG/DL (60-99); SODIUM, SERUM 139 MMOL/L (135-148)
[2017-01-08] MEDS ORDERED: PCET PO (17:24)
== END 2017-01-08 21:57 | disposition home or self-care (01) | DRG 355 ==
LOC: ENRESERVDT → ENRESERV → ENRESERVTM → SDC 10:39 → 5SO 18:50
PROVIDERS: Specialist
PROC: 0WUF0JZ Supplement Abdominal Wall with Synthetic Substitute, Open Approach (ICD-10-PCS; principal; 2017-01-04 10:00)
DX: K43.2 Incisional hernia without obstruction or gangrene (principal); F32.9 Major depressive disorder, single episode, unspecified; E66.9 Obesity, unspecified; Z68.31 Body mass index [BMI] 31.0-31.9, adult
CPT/HCPCS: 36415; 80048; 80053; 83735; 85014; 85018; 85025; 87641; 88305; A9270-GY; C1713; C1781; J0690; J1170; J2250; J2405; J2550; J2710; J2795; J3010